=== PATIENT | male | born 1935 | race Caucasian/White ===

== ENCOUNTER 2017-04-28 10:41 | Inpatient (IN) | payer MEDICARE, BC, OTHER ==
[2017-04-28] MEDS ORDERED: HEPARIN 25,000UTS/500ML PREMIX 500 ML IV (10:46)
[2017-04-28 10:54] LABS: ADD MAN DIFF? NO
[2017-04-28] MEDS: HEPARIN for IV BOLUS 10,000 UNIT/10 ML VIAL. IV (10:55)
[2017-04-28 10:57] LABS: BASO # 0.1 x10^3/uL (0.0-0.2); BASO % 1 % (0-3); EOS # 0.3 x10^3/uL (0.0-0.7); EOS % 6 % (0-3); HEMATOCRIT 35.7 % (39.0-53.0); HEMOGLOBIN 12.1 g/dL (13.0-17.5); LYMPH # 2.2 x10^3/uL (1.0-4.8); LYMPH % 38 % (24-48); MEAN CORPUSCULAR HEMOGLOBIN 32 pg (25-35); MEAN CORPUSCULAR HGB CONC 34 g/dL (31-37); MEAN CORPUSCULAR VOLUME 93 fL (79-100); MONO # 0.5 x10^3/uL (0.0-1.1); MONO % 8 % (0-9); NEUT # 2.7 x10^3uL (1.8-7.7); NEUT % 47 % (31-73); PLATELET COUNT 199 x10^3/uL (140-400); RED BLOOD COUNT 3.83 x10^6/uL (4.30-5.70); RED CELL DISTRIBUTION WIDTH 13.5 % (11.5-14.5); WHITE BLOOD COUNT 5.7 x10^3/uL (4.0-11.0)
[2017-04-28] MEDS ORDERED: ONDANSETRON PF 4 MG/2 ML VIAL. IV (11:00)
[2017-04-28] MEDS ORDERED: MIDAZOLAM HCL/PF 2 MG/2 ML VIAL. (11:04)
[2017-04-28] MEDS ORDERED: fentaNYL PF VIAL 100 MCG/2 ML VIAL (11:04)
[2017-04-28 11:06] LABS: INR 1.1 (0.8-1.1); PROTHROMBIN TIME PATIENT 13.1 SEC (11.7-14.0)
[2017-04-28 11:09] LABS: AGAP ISTAT 18 mmol/L (6-14); BUN ISTAT 22 mg/dL (8-26); CHLORIDE ISTAT 101 mmol/L (98-110); CREATININE ISTAT 1.3 mg/dL (0.5-1.4); GLUCOSE ISTAT 209 mg/dL (70-99); HEMATOCRIT ISTAT 34 % (37-52); HEMOGLOBIN ISTAT 11.6 g/dL (14-18); ION CA ISTAT 1.23 mmol/L (1.13-1.32); POTASSIUM ISTAT 4.1 mmol/L (3.5-5.0); SODIUM ISTAT 141 mmol/L (135-145); TOT CO2 ISTAT 28 mmol/L (23-32)
[2017-04-28 11:10] LABS: TROPONIN BY ISTAT 0.03 ng/ml (<0.08)
[2017-04-28] MEDS ORDERED: TIROFIBAN 5MG -0.9% NS 0 ML IV (11:11)
[2017-04-28] MEDS ORDERED: IOHEXOL 300 MG/ML 100ML VIAL. (11:11)
[2017-04-28] MEDS ORDERED: HEPARIN for IV BOLUS 10,000 UNIT/10 ML VIAL. (11:11)
[2017-04-28 11:13] LABS: ANION GAP 7 (6-14); BLOOD UREA NITROGEN 22 mg/dL (8-26); CARBON DIOXIDE 30 mmol/L (21-32); CHLORIDE 104 mmol/L (98-107); CREATININE 1.4 mg/dL (0.7-1.3); GFR 48.5; GLUCOSE 213 mg/dL (70-99); SODIUM 141 mmol/L (136-145)
[2017-04-28 11:19] LABS: ALK PHOS 67 U/L (46-116); ALT (SGPT) 20 U/L (16-63); AST (SGOT) 23 U/L (15-37); DIRECT BILIRUBIN 0.1 mg/dL (0.0-0.2); LIPASE 122 U/L (73-393); MAGNESIUM 1.8 mg/dL (1.8-2.4); TOTAL BILIRUBIN 0.7 mg/dL (0.2-1.0); TOTAL PROTEIN 7.3 g/dL (6.4-8.2)
[2017-04-28 11:21] LABS: TROPONINI 0.029 ng/mL (0.000-0.055)
[2017-04-28] MEDS ORDERED: BIVALIRUDIN 250 MG VIAL. IV (11:23)
[2017-04-28 11:26] LABS: NT-PRO BNP 476 pg/mL (0-449)
[2017-04-28 11:26] LABS: CKMB MASS 1.9 ng/mL (0.0-3.6); CREATINE KINASE 94 U/L (39-308)
[2017-04-28] MEDS: LIDOCAINE 2% 20 ML VIAL. IJ (11:45)
[2017-04-28] MEDS: MIDAZOLAM HCL/PF 2 MG/2 ML VIAL. IV (11:45)
[2017-04-28] MEDS: NITROGLYCERIN 200 MCG/2 ML SYRINGE FOR CATH/VASC LAB. IART (11:45)
[2017-04-28] MEDS: fentaNYL PF VIAL 100 MCG/2 ML VIAL IV (11:45)
[2017-04-28] MEDS: IOHEXOL 300 MG/ML 100ML VIAL. IART (11:45)
[2017-04-28] MEDS: BIVALIRUDIN 250 MG VIAL. IV (11:45)
[2017-04-28] MEDS ORDERED: TICAGRELOR 90 MG TABLET. (11:55)
[2017-04-28] MEDS ORDERED: ASPIRIN 325 MG TABLET (11:55)
[2017-04-28] MEDS ORDERED: NITROGLYCERIN PREMIX 250 ML IV (12:12)
[2017-04-28] MEDS: IV NORMAL SALINE 1000ML BAG 1,000 ML IV (12:16)
[2017-04-28] MEDS: TICAGRELOR 90 MG TABLET. PO ×2 (12:27→21:09)
[2017-04-28] MEDS: ASPIRIN 325 MG TABLET PO (12:27)
[2017-04-28] MEDS ORDERED: ACETAMINOPHEN 325 MG TABLET. PO (12:30)
[2017-04-28] MEDS ORDERED: LIDOCAINE 2% 100 MG/5 ML SYRINGE. IV (12:30)
[2017-04-28] MEDS ORDERED: fentaNYL PF VIAL 100 MCG/2 ML VIAL IV (12:30)
[2017-04-28] MEDS ORDERED: 0.9 % SODIUM CHLORIDE 10 ML DISP.SYRIN. IV (12:30)
[2017-04-28] MEDS ORDERED: NITROGLYCERIN SUBLINGUAL 0.4 MG BOTTLE OF 25. SL (12:30)
[2017-04-28] MEDS ORDERED: AMIODARONE 150 MG in IV DEXTROSE 5% 100 ML IV (12:30)
[2017-04-28] MEDS ORDERED: ATROPINE 0.5 MG/5 ML DISP.SYRIN. IV (12:30)
[2017-04-28] MEDS: LISINOPRIL 5 MG TABLET. PO ×2 (13:00→14:40)
[2017-04-28] MEDS: METOPROLOL TART IMMED RELEASE 25 MG TABLET. PO ×3 (13:00→21:00)
[2017-04-28] MEDS ORDERED: PNEUMOCOCCAL VAX SCREEN BY RX. MC (15:45)
[2017-04-28] MEDS ORDERED: INFLUENZA VAX SCREEN BY RX. MC (15:45)
[2017-04-28] MEDS ORDERED: hydrALAZINE 20 MG/ML VIAL. IVP (16:45)
[2017-04-28 17:12] LABS: THYROID STIM HORMONE (TSH) 5.918 uIU/mL (0.358-3.74)
[2017-04-28 17:26] LABS: TROPONINI 67.051 ng/mL (0.000-0.055)
[2017-04-28] MEDS: ATORVASTATIN CALCIUM 20 MG TABLET PO (21:00)
[2017-04-28 23:33] LABS: TROPONINI 51.267 ng/mL (0.000-0.055)
[2017-04-29 00:11] LABS: MRSA BY PCR Negative (Negative)
[2017-04-29 05:18] LABS: ADD MAN DIFF? NO
[2017-04-29 05:45] LABS: BASO % 1 % (0-3); EOS # 0.2 x10^3/uL (0.0-0.7); EOS % 2 % (0-3); HEMATOCRIT 34.2 % (39.0-53.0); HEMOGLOBIN 11.6 g/dL (13.0-17.5); LYMPH # 1.5 x10^3/uL (1.0-4.8); LYMPH % 17 % (24-48); MEAN CORPUSCULAR HEMOGLOBIN 31 pg (25-35); MEAN CORPUSCULAR HGB CONC 34 g/dL (31-37); MEAN CORPUSCULAR VOLUME 93 fL (79-100); MONO # 0.8 x10^3/uL (0.0-1.1); MONO % 9 % (0-9); NEUT # 6.3 x10^3uL (1.8-7.7); NEUT % 72 % (31-73); PLATELET COUNT 171 x10^3/uL (140-400); RED BLOOD COUNT 3.68 x10^6/uL (4.30-5.70); RED CELL DISTRIBUTION WIDTH 13.3 % (11.5-14.5); WHITE BLOOD COUNT 8.7 x10^3/uL (4.0-11.0)
[2017-04-29 06:08] LABS: TROPONINI 38.759 ng/mL (0.000-0.055)
[2017-04-29 06:10] LABS: CHOLESTEROL 191 mg/dL (0-200); HDLC 56 mg/dL (40-60); LDLC 124 mg/dL (0-100); NON-HDL CHOLESTEROL 135 mg/dL (0-129); TRIGLYCERIDES 56 mg/dL (0-150); VLDLC 11 mg/dL (0-40)
[2017-04-29 06:12] LABS: CHOLESTEROL/HDL RATIO 3.4
[2017-04-29 07:31] LABS: ANION GAP 8 (6-14); BLOOD UREA NITROGEN 23 mg/dL (8-26); CALCIUM 9.3 mg/dL (8.5-10.1); CARBON DIOXIDE 27 mmol/L (21-32); CHLORIDE 103 mmol/L (98-107); CREATININE 1.2 mg/dL (0.7-1.3); GLUCOSE 101 mg/dL (70-99); SODIUM 138 mmol/L (136-145)
[2017-04-29] MEDS ORDERED: ASPIRIN ENTERIC COATED 81 MG TABLET.DR. PO (08:00)
[2017-04-29] MEDS: ASPIRIN ENTERIC COATED 81 MG TABLET.DR. PO (08:59)
[2017-04-29] MEDS: TICAGRELOR 90 MG TABLET. PO ×3 (08:59→22:35)
[2017-04-29] MEDS: LISINOPRIL 5 MG TABLET. PO (09:00)
[2017-04-29] MEDS ORDERED: FLU VACC QS2017-18 (36MOS+)/PF 0.5 ML SYRINGE. VAX IM (09:00)
[2017-04-29] MEDS: METOPROLOL TART IMMED RELEASE 25 MG TABLET. PO ×2 (09:00→20:32)
[2017-04-29] MEDS ORDERED: PNEUMOC CONJ VACC 23-VALENT 0.5 ML VIAL. VAX IM (09:00)
[2017-04-29] MEDS ORDERED: ONDANSETRON PF 4 MG/2 ML VIAL. IV (11:00)
[2017-04-29] MEDS ORDERED: AMIODARONE 150 MG in IV DEXTROSE 5% 100 ML IV (12:30)
[2017-04-29] MEDS ORDERED: ACETAMINOPHEN 325 MG TABLET. PO (12:30)
[2017-04-29] MEDS ORDERED: NITROGLYCERIN SUBLINGUAL 0.4 MG BOTTLE OF 25. SL (12:30)
[2017-04-29 15:19] LABS: HEMOGLOBIN A1C 5.6 % (4.8-5.6)
[2017-04-29] MEDS: ATORVASTATIN CALCIUM 20 MG TABLET PO ×2 (20:32→22:34)
[2017-04-29] MEDS: hydrALAZINE 20 MG/ML VIAL. IVP (23:09)
[2017-04-30] MEDS: TICAGRELOR 90 MG TABLET. PO (07:33)
[2017-04-30] MEDS: METOPROLOL TART IMMED RELEASE 25 MG TABLET. PO (07:33)
[2017-04-30] MEDS: ASPIRIN ENTERIC COATED 81 MG TABLET.DR. PO (07:33)
[2017-04-30] MEDS: LISINOPRIL 5 MG TABLET. PO (07:33)
== END 2017-04-30 10:35 | disposition home or self-care (01) | DRG 246 ==
LOC: ER 10:41 → 1 WEST ICU 10:45
PROC: 027034Z Dilation of Coronary Artery, One Artery with Drug-eluting Intraluminal Device, Percutaneous Approach (ICD-10-PCS; principal; 2017-04-28)
PROC: 4A023N7 Measurement of Cardiac Sampling and Pressure, Left Heart, Percutaneous Approach (ICD-10-PCS; 2017-04-28)
PROC: B2111ZZ Fluoroscopy of Multiple Coronary Arteries using Low Osmolar Contrast (ICD-10-PCS; 2017-04-28)
DX: I21.19 ST elevation (STEMI) myocardial infarction involving other coronary artery of inferior wall (principal); G93.41 Metabolic encephalopathy; N17.0 Acute kidney failure with tubular necrosis; I16.1 Hypertensive emergency; E11.9 Type 2 diabetes mellitus without complications; E78.5 Hyperlipidemia, unspecified; I10 Essential (primary) hypertension; M19.90 Unspecified osteoarthritis, unspecified site; Z82.49 Family history of ischemic heart disease and other diseases of the circulatory system; Z87.891 Personal history of nicotine dependence
CPT/HCPCS: 36415; 71045; 80047; 80048; 80061; 80076; 82553; 83036; 83690; 83735; 83880; 84443; 84484; 85025; 85610; 87641; 92941; 93005; 93306; 93454; 99291; 99291-25; C1713; C1725; C1769; C1771; C1887; C1892; G0269; J0360; J0583; J1644; J7030; Q9967

== ENCOUNTER 2017-10-30 10:55 | Inpatient (IN) | payer MEDICARE, BC ==
[2017-10-30] MEDS: ASPIRIN CHEWABLE 81 MG TABLET. PO (11:30)
[2017-10-30 11:39] LABS: BASO % 0 % (0-3); EOS % 0 % (0-3); HEMATOCRIT 34.2 % (39.0-53.0); HEMOGLOBIN 11.6 g/dL (13.0-17.5); LYMPH # 0.7 x10^3/uL (1.0-4.8); LYMPH % 9 % (24-48); MEAN CORPUSCULAR HEMOGLOBIN 32 pg (25-35); MEAN CORPUSCULAR HGB CONC 34 g/dL (31-37); MEAN CORPUSCULAR VOLUME 94 fL (79-100); MONO # 0.3 x10^3/uL (0.0-1.1); MONO % 4 % (0-9); NEUT # 6.3 x10^3uL (1.8-7.7); NEUT % 86 % (31-73); PLATELET COUNT 156 x10^3/uL (140-400); RED BLOOD COUNT 3.66 x10^6/uL (4.30-5.70); RED CELL DISTRIBUTION WIDTH 13.7 % (11.5-14.5); WHITE BLOOD COUNT 7.3 x10^3/uL (4.0-11.0)
[2017-10-30 11:44] LABS: ADD MAN DIFF? YES
[2017-10-30 11:48] LABS: ANION GAP 7 (6-14); BLOOD UREA NITROGEN 33 mg/dL (8-26); CALCIUM 9.6 mg/dL (8.5-10.1); CARBON DIOXIDE 30 mmol/L (21-32); CHLORIDE 104 mmol/L (98-107); CREATININE 1.3 mg/dL (0.7-1.3); GFR 52.7; GLUCOSE 169 mg/dL (70-99); POTASSIUM 4.2 mmol/L (3.5-5.1); SODIUM 141 mmol/L (136-145)
[2017-10-30 11:55] LABS: PARTIAL THROMBOPLASTIN TIME 24 SEC (24-38)
[2017-10-30] MEDS: IOHEXOL 300 MG/ML 100ML VIAL. IV (12:00)
[2017-10-30 12:03] LABS: TROPONINI < 0.017 ng/mL (0.000-0.055)
[2017-10-30] MEDS ORDERED: CONTRAST GIVEN. MC (12:15)
[2017-10-30] MEDS: ASPIRIN 300 MG SUPP.RECT PR (12:29)
[2017-10-30 12:38] LABS: % BANDS 9 % (0-9); % BASOS 1 % (0-3); % LYMPHS 9 % (24-48); % MONOS 2 % (0-10); % SEGS 79 % (35-66); PLT ESTIMATE ADEQUATE (ADEQUATE)
[2017-10-30] MEDS ORDERED: ACETAMINOPHEN 650 MG SUPP.RECT. PR (15:00)
[2017-10-30] MEDS ORDERED: LABETALOL 20 MG/4 ML DISP.SYRIN. IVP (15:00)
[2017-10-30] MEDS ORDERED: ACETAMINOPHEN 325 MG TABLET. PO (15:00)
[2017-10-30] MEDS ORDERED: MORPHINE SULFATE 2 MG/ML DISP.SYRIN. IV (15:00)
[2017-10-30] MEDS ORDERED: ONDANSETRON PF 4 MG/2 ML VIAL. IV (15:00)
[2017-10-30] MEDS: LISINOPRIL 5 MG TABLET. PO (15:30)
[2017-10-30] MEDS ORDERED: IV NORMAL SALINE 1000ML BAG 1,000 ML IV (15:30)
[2017-10-30 18:26] LABS: TROPONINI < 0.017 ng/mL (0.000-0.055)
[2017-10-30] MEDS: IV NORMAL SALINE 1000ML BAG 1,000 ML IV (18:39)
[2017-10-30] MEDS: ENOXAPARIN 40 MG/0.4 ML SYRINGE. SQ (18:39)
[2017-10-30] MEDS: ATORVASTATIN CALCIUM 20 MG TABLET PO (19:25)
[2017-10-30] MEDS: METOPROLOL TART IMMED RELEASE 25 MG TABLET. PO (19:25)
[2017-10-30] MEDS: TICAGRELOR 90 MG TABLET. PO (19:25)
[2017-10-30 21:00] LABS: TROPONINI < 0.017 ng/mL (0.000-0.055)
[2017-10-31] MEDS: IV NORMAL SALINE 1000ML BAG 1,000 ML IV ×4 (01:00→21:14)
[2017-10-31 04:33] LABS: ADD MAN DIFF? NO
[2017-10-31 04:39] LABS: BASO % 1 % (0-3); EOS # 0.1 x10^3/uL (0.0-0.7); EOS % 1 % (0-3); HEMATOCRIT 31.8 % (39.0-53.0); HEMOGLOBIN 10.9 g/dL (13.0-17.5); LYMPH # 1.5 x10^3/uL (1.0-4.8); LYMPH % 24 % (24-48); MEAN CORPUSCULAR HEMOGLOBIN 32 pg (25-35); MEAN CORPUSCULAR HGB CONC 34 g/dL (31-37); MEAN CORPUSCULAR VOLUME 94 fL (79-100); MONO # 0.5 x10^3/uL (0.0-1.1); MONO % 8 % (0-9); NEUT # 4.1 x10^3uL (1.8-7.7); NEUT % 66 % (31-73); PLATELET COUNT 144 x10^3/uL (140-400); RED CELL DISTRIBUTION WIDTH 13.6 % (11.5-14.5); WHITE BLOOD COUNT 6.3 x10^3/uL (4.0-11.0)
[2017-10-31 04:59] LABS: ANION GAP 7 (6-14); BLOOD UREA NITROGEN 26 mg/dL (8-26); CALCIUM 8.9 mg/dL (8.5-10.1); CARBON DIOXIDE 28 mmol/L (21-32); CHLORIDE 107 mmol/L (98-107); CHOLESTEROL 188 mg/dL (0-200); CREATININE 1.1 mg/dL (0.7-1.3); GFR 63.9; GLUCOSE 91 mg/dL (70-99); HDLC 56 mg/dL (40-60); LDLC 119 mg/dL (0-100); NON-HDL CHOLESTEROL 132 mg/dL (0-129); SODIUM 142 mmol/L (136-145); TRIGLYCERIDES 65 mg/dL (0-150); VLDLC 13 mg/dL (0-40)
[2017-10-31 05:02] LABS: CHOLESTEROL/HDL RATIO 3.4
[2017-10-31] MEDS: ASPIRIN ENTERIC COATED 81 MG TABLET.DR. PO (14:25)
[2017-10-31] MEDS: METOPROLOL TART IMMED RELEASE 25 MG TABLET. PO ×2 (14:27→21:11)
[2017-10-31] MEDS: LISINOPRIL 5 MG TABLET. PO (14:27)
[2017-10-31] MEDS: TICAGRELOR 90 MG TABLET. PO ×2 (14:28→21:10)
[2017-10-31] MEDS: ENOXAPARIN 30 MG/0.3 ML SYRINGE. SQ (17:06)
[2017-10-31] MEDS: ATORVASTATIN CALCIUM 20 MG TABLET PO (21:10)
[2017-11-01] MEDS: METOPROLOL TART IMMED RELEASE 25 MG TABLET. PO ×2 (00:51→09:00)
[2017-11-01] MEDS: ASPIRIN ENTERIC COATED 81 MG TABLET.DR. PO (09:52)
[2017-11-01] MEDS: LISINOPRIL 5 MG TABLET. PO (09:53)
[2017-11-01] MEDS: TICAGRELOR 90 MG TABLET. PO (09:53)
[2017-11-01] MEDS ORDERED: LISINOPRIL 10 MG TABLET PO (13:15)
[2017-11-01] MEDS ORDERED: ENOXAPARIN 40 MG/0.4 ML SYRINGE. SQ (16:00)
[2017-11-01] MEDS ORDERED: ATORVASTATIN CALCIUM 20 MG TABLET PO (21:00)
[2017-11-02] MEDS ORDERED: LISINOPRIL 5 MG TABLET. PO (09:00)
== END 2017-11-01 13:31 | DRG 64 ==
LOC: ER 10:55 → 6 SOUTH 13:20
DX: I63.9 Cerebral infarction, unspecified (principal); G93.49 Other encephalopathy; I65.23 Occlusion and stenosis of bilateral carotid arteries; I25.10 Atherosclerotic heart disease of native coronary artery without angina pectoris; I10 Essential (primary) hypertension; Z95.5 Presence of coronary angioplasty implant and graft; Z82.49 Family history of ischemic heart disease and other diseases of the circulatory system; Z82.3 Family history of stroke; F03.90 Unspecified dementia, unspecified severity, without behavioral disturbance, psychotic disturbance, mood disturbance, and anxiety; M19.90 Unspecified osteoarthritis, unspecified site; E78.5 Hyperlipidemia, unspecified; E11.42 Type 2 diabetes mellitus with diabetic polyneuropathy
CPT/HCPCS: 36415; 70450; 70496; 70498; 70551; 80048; 80061; 84484; 85007; 85025; 85610; 85730; 92610-GN; 93005; 93306; 93880; 97110-GP; 97116-GP; 97162-GP; 97166-GO; 97530-GO; 97535-GO; 99285; 99285-25; G8978-CL-GP; G8979-CK-GP; J1650; J7030; Q9967

== ENCOUNTER 2018-03-27 17:58 | Emergency (ER) | payer MEDICARE, BC ==
[~2018-03-27] VITALS: Ht 182.9 cm; Wt 72.6 kg
[~2018-03-27 17:58] MED LIST: ASPI-612 PO; ATOR20TA58 PO; LISI-338 PO; METO25TA4 PO; TICA90TA PO
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
[2018-03-27 19:02] VITALS: BP 170/75
--- NOTE | 2018-03-27 20:28 | RAD ---
PORTABLE CHEST 1V Clinical History: AMS Technique: AP view of the chest was obtained at 03/27/2018 6:26 PM. Comparison: April 28, 2017. Findings: The cardiomediastinal silhouette is normal. The pulmonary vasculature is normal. The lungs and pleural margins are clear. Impression: No evidence of an acute cardiopulmonary process. Electronically signed by: Harsh Weiner III, MD (03/27/2018 8:24 PM) [id number]
--- NOTE | 2018-03-28 07:16 | EKG ---
[facility] [address] [place] [address] Test Date: 2018-03-27 Test Time: 18:40:59 Pat Name: ESTRELLITA GOMEZ Department: Room: Gender: M Time Study Observer: : 1935 Requested By: JAK MURCIA Order Number: [id number] Reading MD: Manjinder Ingram Measurements Intervals [place] Rate: 46 P: 60 [place]: 186 QRS: 39 QRSD: 82 T: 59 QT: 496 QTc: 435 Interpretive Statements SINUS BRADYCARDIA Electronically Signed On 03-30-2018 17:21:21 TOWER EXCAVATOR OPERATOR by Manjinder Ingram
== END 2018-03-27 19:15 | disposition left against medical advice (07) ==
LOC: ER 17:58
DX: R41.0 Disorientation, unspecified (principal); I10 Essential (primary) hypertension; I25.2 Old myocardial infarction; I25.10 Atherosclerotic heart disease of native coronary artery without angina pectoris; Z86.73 Personal history of transient ischemic attack (TIA), and cerebral infarction without residual deficits; Z95.1 Presence of aortocoronary bypass graft; Z95.5 Presence of coronary angioplasty implant and graft
CPT/HCPCS: 71045; 93005; 99284-25

== ENCOUNTER 2018-07-09 10:13 | Inpatient (IN) | payer MEDICARE, BC ==
[~2018-07-09] VITALS: Ht 179.1 cm; Wt 56.0 kg
[2018-07-09] MEDS ORDERED: cloNIDine HCL 0.1 MG TABLET PO ONE (10:45)
--- NOTE | 2018-07-09 11:02 | PDOC1 ---
History and Physical Date of Admission Date of Admission DATE: 07/09/18 TIME: 11:01 Identification/Chief Complaint Chief Complaint Confused Source Source: Caregiver, Chart review History of Present Illness History of Present Illness 82 yo M w/ PMHx CVA 2018, h/o TBI with impaired cognition who brought in by EMS because of confusion and wandering outside. Patient denies any problem and he states his caregiver, Selwyn, made him to come here but his caregiver stated that he refused to take his medication, filling out the paper work for correction placement and taking care of himself. Patient's caregivers states that he is out of home about 10 hours while he is at work and doesn't feel comfortable that he states by himself. Patient is alert and oriented to person and place and states he lives with his cousin named Selwyn who is his godson and medical power of multi operation machine operator/guardian. In ED he had a CT head: 1. No acute intracranial bleed. 2. Chronic right hermelinda and left basal ganglia infarcts. On my interview he is insistent that he has an IQ of 78, is oriented to person, place, month, day, but thinks the year is 2013. His guardian/POA Selwyn is bedside, states that Mr Milligan sundowns and they are looking into intermediate school teacher placement with his mother who is a nurse locally. Mr. Milligan has no complaints and shows he can walk with his cane for me during interview. 03/27/18 was found walking home in the cold and was seen in ED, left AMA at that time. Same occurred on 04/17/18. SBP was > 220mmHg Past Medical History Cardiovascular: CAD, HTN, [place], Hyperlipidemia Pulmonary: No pertinent hx CENTRAL NERVOUS SYSTEM: Periperal neuropathy GI: No pertinent hx Musculoskeletal: Osteoarthritis, Other Endocrine: Diabetes Past Surgical History Past Surgical History: Other Family History Family History: Coronary Artery Disease, Stroke Social History ALCOHOL: none Drugs: None Current Medications Current Medications Current Medications Clonidine HCl (Catapres) 0.1 mg 1X ONCE PO ; Start 07/09/18 at 10:45; Stop at 10:50; Status DC Active Scripts Active Metoprolol Tartrate 25 Mg Tablet 12.5 Mg PO BID 30 Days Lisinopril 5 Mg Tablet 5 Mg PO DAILY 30 Days Atorvastatin Calcium 20 Mg Tablet 20 Mg PO QHS 30 Days Aspirin Ec (Aspirin) 81 Mg Tablet. 81 Mg PO DAILYWBKFT 30 Days Allergies Allergies: Coded Allergies: No Known Drug Allergies (Unverified , 04/28/17) ROS General: No: Chills, Night Sweats, Fatigue, Malaise, Appetite, Other PSYCHOLOGICAL ROS: YES: Disorientation; No: Anxiety, Behavioral Disorder, Concentration difficultie, Decreased libido , Depression, Hallucinations, Hostility, Irritablity, Memory difficulties, Mood Swings, Obsessive thoughts, Physical abuse, Sexual abuse, Sleep disturbances, Suicidal ideation, Other Eyes: No Blurry vision, No Decreased vision, No Double vision, No Dry eyes, No Excessive tearing, No Eye Pain, No Itchy Eyes, No Loss of vision, No Photophobia , No Scotomata, No Uses contacts, No Uses glasses, No Other HEENT: No: Heacaches, Visual Changes, Hearing change, Nasal congestion, Nasal discharge, Oral lesions, Sinus pain, Sore Throat, Epistaxis, Sneezing, Snoring, Tinnitus, Vertigo, Vocal changes, Other ALLERGY AND IMMUNOLOGY: No: Hives, Insect Bite Sensitivity, Itchy/Watery Eyes, Nasal Congestion, Post Nasal Drip, Seasonal Allergies, Other Hematological and Lymphatic: No: Bleeding Problems, Blood Clots, Blood Transfusions, Brusing, Night Sweats, Pallor, Swollen Lymph Nodes, Other ENDOCRINE: No: Breast Changes, Galactorrhea, Hair Pattern Changes, Hot Flashes , Malaise/lethargy, Mood Swings, Palpitations, Polydipsia/polyuria, Skin Changes , Temperature Intolerance, Unexpected Weight Changes, Other Breast: No New/Changing Breast Lumps, No Nipple changes, No Nipple discharge, No Other Respiratory: No: Cough, Hemoptysis, Orthopnea, Pleuritic Pain, Shortness of breath, SOB with excertion, Sputum Changes, Stridor, Tachypnea, Wheezing, Other Cardiovascular: No Chest Pain, No Palpitations, No Orthopnea, No Paroxysmal Noc. Dyspnea, No Edema, No Lt Headedness, No Other Gastrointestinal: No Nausea, No Vomiting, No Abdominal Pain, No Diarrhea, No Constipation, No Melena, No Hematochezia, No Other Genitourinary: No Dysuria, No Frequency, No Incontinence, No Hematuria, No Retention, No Discharge, No Urgency, No Pain, No Flank Pain, No Other, No , No , No , No , No , No , No Musculoskeletal: No Gait Disturbance, No Joint Pain, No Joint Stiffness, No Joint Swelling, No Muscle Pain, No Muscular Weakness, No Pain In:, No Swelling In:, No Other Neurological: No Behavorial Changes, No Bowel/Bladder ControlChng, No Confusion , No Dizziness, No Gait Disturbance, No Headaches, No Impaired Coord/balance, No Memory Loss, No Numbness/Tingling, No Seizures, No Speech Problems, No Tremors, No Visual Changes, No Weakness, No Other Skin: No Dry Skin, No Eczema, No Hair Changes, No Lumps, No Mole Changes, No Mottling, No Nail Changes, No Pruritus, No Rash, No Skin Lesion Changes, No Other, No Acne Physical Exam General: Alert, Cooperative, No acute distress HEENT: Atraumatic, PERRLA, EOMI, Mucous membr. moist/pink Lungs: Other (Scattered wheezes bilaterally) Heart: S1S2, RRR Abdomen: Normal bowel sounds, Soft, No tenderness, No hepatosplenomegaly, No masses Rectal Exam: not examined Extremities: No clubbing, No cyanosis, No edema, Normal pulses, No tenderness/ swelling Skin: No rashes, No breakdown, No significant lesion Neuro: Normal gait, Normal speech, Strength at 5/5 X4 ext, Normal tone, Sensation intact, Cranial nerves 3-12 NL, Reflexes 2+ Psych/Mental Status: Mood NL Vitals Vitals Vital Signs Date Time Temp Pulse Resp B/P (MAP) Pulse Ox O2 Delivery O2 Flow Rate FiO2 07/09/18 10:34 97.6 46 16 226/72 (123) 99 Room Air 97.6 Images Images CXR - 1. No acute pulmonary finding. 2. Emphysema. CT Head - 1. No acute intracranial abnormality is identified. There is again mild generalized supratentorial atrophy. There is some ill-defined low-density right hermelinda although unchanged if a real finding, could be due to sequela of previous ischemia. VTE Prophylaxis Ordered VTE Prophylaxis Devices: Yes VTE Pharmacological Prophylaxi: Yes Assessment/Plan Assessment/Plan A/P: Acute encephalopathy - Hypertensive encephalopathy, metabolic is likely as well. it appears he is chronically cognitively impaired with a guardian. Will have him seen by neurology as he has been seen in the past Falls - patient has fallen in the past, states he has not fallen in months Wheezing - emphysema on CXR - will give nebs Anemia - will monitor, check iron levels H/O CVA - on statin and ASA, continue Dementia? - likely vascular, he will need skilled placement in the future, will d/w DWIGHT FEN - General PPX - SCDs DNR/DNI Inpatient for confusion and falls for at least 2 midnights WILDA ASHRAF MD Jul 09, 2018 11:02
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
[2018-07-09 11:25] LABS: BASO % 1 % (0-3); EOS # 0.2 x10^3/uL (0.0-0.7); EOS % 5 % (0-3); HEMATOCRIT 33.4 % (39.0-53.0); HEMOGLOBIN 11.2 g/dL (13.0-17.5); LYMPH # 1.1 x10^3/uL (1.0-4.8); LYMPH % 24 % (24-48); MEAN CORPUSCULAR HEMOGLOBIN 31 pg (25-35); MEAN CORPUSCULAR HGB CONC 34 g/dL (31-37); MEAN CORPUSCULAR VOLUME 93 fL (79-100); MONO # 0.4 x10^3/uL (0.0-1.1); MONO % 9 % (0-9); NEUT # 2.7 x10^3uL (1.8-7.7); NEUT % 61 % (31-73); PLATELET COUNT 197 x10^3/uL (140-400); RED BLOOD COUNT 3.58 x10^6/uL (4.30-5.70); RED CELL DISTRIBUTION WIDTH 13.5 % (11.5-14.5); WHITE BLOOD COUNT 4.4 x10^3/uL (4.0-11.0)
--- NOTE | 2018-07-09 11:33 | RAD ---
EXAM: Chest, 2 views. HISTORY: Confusion. COMPARISON: None. FINDINGS: 2 views of the chest are obtained. There is no infiltrate, pleural effusion or pneumothorax. The heart is normal in size. There is hyperinflation likely due to emphysema. There are few calcified granulomas. There are few minimal thoracic superior endplate depressions. IMPRESSION: 1. No acute pulmonary finding. 2. Emphysema. Electronically signed by: Lissett Styles MD (07/09/2018 11:30 AM) [place] [id number]
[2018-07-09 11:36] LABS: CALCIUM 9.3 mg/dL (8.5-10.1); CREATININE 1.2 mg/dL (0.7-1.3); GFR 57.8; POTASSIUM 4.4 mmol/L (3.5-5.1)
[2018-07-09 11:41] LABS: ALBUMIN 3.9 g/dL (3.4-5.0); ALBUMIN/GLOBULIN RATIO 1.2 (1.0-1.7); TOTAL BILIRUBIN 0.6 mg/dL (0.2-1.0); TOTAL PROTEIN 7.1 g/dL (6.4-8.2)
--- NOTE | 2018-07-09 12:00 | RAD ---
CT HEAD WO CONTRAST History: Confusion Comparison: April 17, 2018 Technique: Noncontrast CT imaging was performed of the head. Exposure: One or more of the following individualized dose reduction techniques were utilized for this examination: 1. Automated exposure control 2. Adjustment of the mA and/or kV according to patient size 3. Use of iterative reconstruction technique. Findings: No acute extra-axial or parenchymal hemorrhage is identified. There is no significant intra-axial mass effect, midline shift, or extra-axial fluid collection. The capellan-white differentiation of the major vascular territories is preserved. Ventricular size is proportionate to sulcal spaces. There is again mild generalized supratentorial atrophy. The mastoid air cells and the visualized paranasal sinuses are aerated. No acute calvarial abnormality is identified. There is atherosclerotic calcification carotid siphons bilaterally. There is some ill-defined low-density of the right hermelinda although unchanged if a real finding, limited evaluation due to artifact in this region. Impression: 1. No acute intracranial abnormality is identified. There is again mild generalized supratentorial atrophy. There is some ill-defined low-density right hermelinda although unchanged if a real finding, could be due to sequela of previous ischemia. Electronically signed by: Abhilash Austin MD (07/09/2018 11:57 AM) [facility]
[2018-07-09 13:00] VITALS: BP 159/54
--- NOTE | 2018-07-09 13:08 | EKG ---
[facility] [address] [place] [address] Test Date: 2018-07-09 Test Time: 11:42:04 Pat Name: ESTRELLITA GOMEZ Department: Room: [facility] Gender: M Film Printer: : 1935 Requested By: LIONEL MONTALVO Order Number: [id number] Reading MD: Manjinder Ingram Measurements Intervals [place] Rate: 44 P: 51 [place]: 190 QRS: 38 QRSD: 78 T: 74 QT: 498 QTc: 429 Interpretive Statements SINUS BRADYCARDIA T ABNORMALITY IN HIGH LATERAL LEADS ABNORMAL ECG Electronically Signed On 07-16-2018 12:58:48 CDT by Manjinder Ingram
[2018-07-09 13:18] LABS: BILIRUBIN,URINE NEGATIVE (NEG); CLARITY,URINE CLEAR; COLOR,URINE YELLOW; NITRITE,URINE NEGATIVE (NEG); PH,URINE 7.5; PROTEIN,URINE NEGATIVE (NEG-TRACE)
[2018-07-09 13:25] LABS: RBC,URINE 0 /HPF (0-2); SQUAMOUS EPITHELIAL CELL,UR FEW /LPF
[2018-07-09 13:26] LABS: BACTERIA,URINE 0 /HPF (0-FEW); WBC,URINE 0 /HPF (0-4)
[2018-07-09 13:33] LABS: BARBITURATES NEG (NEG); BENZODIAZEPINES NEG (NEG); CANNABINOIDS NEG (NEG); COCAINE NEG (NEG); METHADONE NEG (NEG); OPIATES NEG (NEG); PHENCYCLIDINE NEG (NEG)
[2018-07-09 13:35] LABS: AMPHETAMINE/METHAMPHETAMINE NEG (NEG)
[2018-07-09] MEDS ORDERED: ONDANSETRON PF 4 MG/2 ML VIAL. IV PRN (14:30)
[2018-07-09] MEDS ORDERED: MAGNESIUM HYDROXIDE 2,400 MG/30 ML ORAL.SUSP. PO PRN (14:30)
[2018-07-09] MEDS ORDERED: LABETALOL 20 MG/4 ML DISP.SYRIN. IVP PRN (14:45)
[2018-07-09 15:00] VITALS: BP 162/55
--- NOTE | 2018-07-09 15:16 | NUR ---
Received pt as an admit to room 504 from ED. Arrived per cart at 1305. See admit assessments. Pt positioned for comfort no c/o pain reported.
[2018-07-09 15:27] VITALS: BP 137/50
[2018-07-09] MEDS: IPRATRPIUM/ALBUTEROL 0.5/2.5MG 3 ML NEBU. NEB SCH ×2 (15:28→20:25)
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
[2018-07-09 15:46] VITALS: BP 137/50
[2018-07-09 19:00] VITALS: BP 125/59
[2018-07-09] MEDS: ATORVASTATIN CALCIUM 20 MG TABLET PO SCH (21:10)
[2018-07-09] MEDS: risperiDONE 1 MG TABLET. PO SCH (21:10)
[2018-07-09] MEDS: SENNOSIDES/DOCUSATE 8.6/50MG TABLET. PO SCH (21:10)
[2018-07-09] MEDS: METOPROLOL TART IMMED RELEASE 25 MG TABLET. PO SCH (21:12)
[2018-07-09] MEDS: HEPARIN for SUB-Q USE 5,000 UNIT/ML VIAL. SQ SCH (21:14)
[2018-07-09 23:00] VITALS: BP 129/79
[2018-07-10 02:58] VITALS: BP 118/57
[2018-07-10] MEDS: HEPARIN for SUB-Q USE 5,000 UNIT/ML VIAL. SQ SCH ×3 (06:09→22:00)
[2018-07-10 07:00] VITALS: BP 138/54
[2018-07-10] MEDS: IPRATRPIUM/ALBUTEROL 0.5/2.5MG 3 ML NEBU. NEB SCH ×4 (08:18→20:08)
[2018-07-10] MEDS: ASPIRIN ENTERIC COATED 81 MG TABLET.DR. PO SCH (08:31)
[2018-07-10] MEDS: METOPROLOL TART IMMED RELEASE 25 MG TABLET. PO SCH ×2 (08:31→20:49)
[2018-07-10] MEDS: SENNOSIDES/DOCUSATE 8.6/50MG TABLET. PO SCH ×2 (08:33→20:49)
[2018-07-10] MEDS: LISINOPRIL 5 MG TABLET. PO SCH (08:33)
--- NOTE | 2018-07-10 09:28 | PDOC ---
PROGRESS NOTES Assessment Problems Medical Problems: (1) Anemia Status: Acute (2) CHF (congestive heart failure) Status: Acute (3) Hypertensive urgency Status: Acute (4) Sinus bradycardia Status: Acute . 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 Failure to thrive at home, including falls and wandering Plan No additional neurological studies needed. custodial transfer. Rehab modalities Subjective none Objective Vital Signs Date Time Temp Pulse Resp B/P (MAP) Pulse Ox O2 Delivery O2 Flow Rate FiO2 07/10/18 08:33 55 138/54 07/10/18 08:19 Room Air 07/10/18 07:00 97.7 16 99 97.7 Intake and Output 07/10/18 07:00 Intake Total 180 ml Output Total 225 ml Balance -45 ml Intake Oral 180 ml Output Urine Total 225 ml # Voids 6 PHYSICAL EXAM Alert. Oriented to person. Thinks he is in the old A building, does not know date PERRL. EOMI. CN: no focal findings. Muscle tone: normal. Muscle strength: 4/5 DTR: 2+ Plantar reflex: flexor Gait: not examined in bed. Sensory exam: no abnormal findings. No cerebellar signs elicited. Review of Relevant I have reviewed the following items jorge (where applicable) has been applied. Labs Laboratory Tests Test 07/09/18 11:10 07/09/18 13:05 White Blood Count 4.4 x10^3/uL (4.0-11.0) Red Blood Count 3.58 x10^6/uL (4.30-5.70) Hemoglobin 11.2 g/dL (13.0-17.5) Hematocrit 33.4 % (39.0-53.0) Mean Corpuscular Volume 93 fL (79-100) Mean Corpuscular Hemoglobin 31 pg (25-35) Mean Corpuscular Hemoglobin Concent 34 g/dL (31-37) Red Cell Distribution Width 13.5 % (11.5-14.5) Platelet Count 197 x10^3/uL (140-400) Neutrophils (%) (Auto) 61 % (31-73) Lymphocytes (%) (Auto) 24 % (24-48) Monocytes (%) (Auto) 9 % (0-9) Eosinophils (%) (Auto) 5 % (0-3) Basophils (%) (Auto) 1 % (0-3) Neutrophils # (Auto) 2.7 x10^3uL (1.8-7.7) Lymphocytes # (Auto) 1.1 x10^3/uL (1.0-4.8) Monocytes # (Auto) 0.4 x10^3/uL (0.0-1.1) Eosinophils # (Auto) 0.2 x10^3/uL (0.0-0.7) Basophils # (Auto) 0.0 x10^3/uL (0.0-0.2) Sodium Level 144 mmol/L (136-145) Potassium Level 4.4 mmol/L (3.5-5.1) Chloride Level 105 mmol/L (98-107) Carbon Dioxide Level 32 mmol/L (21-32) Anion Gap 7 (6-14) Blood Urea Nitrogen 24 mg/dL (8-26) Creatinine 1.2 mg/dL (0.7-1.3) Estimated GFR (Cockcroft-Gault) 57.8 BUN/Creatinine Ratio 20 (6-20) Glucose Level 112 mg/dL (70-99) Calcium Level 9.3 mg/dL (8.5-10.1) Magnesium Level 2.0 mg/dL (1.8-2.4) Total Bilirubin 0.6 mg/dL (0.2-1.0) Aspartate Amino Transf (AST/SGOT) 24 U/L (15-37) Alanine Aminotransferase (ALT/SGPT) 23 U/L (16-63) Alkaline Phosphatase 62 U/L (46-116) Creatine Kinase 96 U/L (39-308) Troponin I Quantitative < 0.017 ng/mL (0.000-0.055) FV-Uxm-S-Type Natriuretic Peptide 512 pg/mL (0-449) Total Protein 7.1 g/dL (6.4-8.2) Albumin 3.9 g/dL (3.4-5.0) Albumin/Globulin Ratio 1.2 (1.0-1.7) Thyroid Stimulating Hormone (TSH) 3.594 uIU/mL (0.358-3.74) Urine Collection Type Unknown Urine Color Yellow Urine Clarity Clear Urine pH 7.5 Urine Specific [place] 1.020 Urine Protein Negative mg/dL (NEG-TRACE) Urine Glucose (UA) Negative mg/dL (NEG) Urine Ketones (Stick) Negative mg/dL (NEG) Urine Blood Negative (NEG) Urine Nitrite Negative (NEG) Urine Bilirubin Negative (NEG) Urine Urobilinogen Dipstick 1.0 mg/dL (0.2 mg/dL) Urine Leukocyte Esterase Negative (NEG) Urine RBC 0 /HPF (0-2) Urine WBC 0 /HPF (0-4) Urine Squamous Epithelial Cells Few /LPF Urine Bacteria 0 /HPF (0-FEW) Urine Mucus Slight /LPF Urine Opiates Screen Neg (NEG) Urine Methadone Screen Neg (NEG) Urine Barbiturates Neg (NEG) Urine Phencyclidine Screen Neg (NEG) Urine Amphetamine/Methamphetamine Neg (NEG) Urine Benzodiazepines Screen Neg (NEG) Urine Cocaine Screen Neg (NEG) Urine Cannabinoids Screen Neg (NEG) Urine Ethyl Alcohol Neg (NEG) Laboratory Tests Test 07/09/18 11:10 07/09/18 13:05 White Blood Count 4.4 x10^3/uL (4.0-11.0) Red Blood Count 3.58 x10^6/uL (4.30-5.70) Hemoglobin 11.2 g/dL (13.0-17.5) Hematocrit 33.4 % (39.0-53.0) Mean Corpuscular Volume 93 fL (79-100) Mean Corpuscular Hemoglobin 31 pg (25-35) Mean Corpuscular Hemoglobin Concent 34 g/dL (31-37) Red Cell Distribution Width 13.5 % (11.5-14.5) Platelet Count 197 x10^3/uL (140-400) Neutrophils (%) (Auto) 61 % (31-73) Lymphocytes (%) (Auto) 24 % (24-48) Monocytes (%) (Auto) 9 % (0-9) Eosinophils (%) (Auto) 5 % (0-3) Basophils (%) (Auto) 1 % (0-3) Neutrophils # (Auto) 2.7 x10^3uL (1.8-7.7) Lymphocytes # (Auto) 1.1 x10^3/uL (1.0-4.8) Monocytes # (Auto) 0.4 x10^3/uL (0.0-1.1) Eosinophils # (Auto) 0.2 x10^3/uL (0.0-0.7) Basophils # (Auto) 0.0 x10^3/uL (0.0-0.2) Sodium Level 144 mmol/L (136-145) Potassium Level 4.4 mmol/L (3.5-5.1) Chloride Level 105 mmol/L (98-107) Carbon Dioxide Level 32 mmol/L (21-32) Anion Gap 7 (6-14) Blood Urea Nitrogen 24 mg/dL (8-26) Creatinine 1.2 mg/dL (0.7-1.3) Estimated GFR (Cockcroft-Gault) 57.8 BUN/Creatinine Ratio 20 (6-20) Glucose Level 112 mg/dL (70-99) Calcium Level 9.3 mg/dL (8.5-10.1) Magnesium Level 2.0 mg/dL (1.8-2.4) Total Bilirubin 0.6 mg/dL (0.2-1.0) Aspartate Amino Transf (AST/SGOT) 24 U/L (15-37) Alanine Aminotransferase (ALT/SGPT) 23 U/L (16-63) Alkaline Phosphatase 62 U/L (46-116) Creatine Kinase 96 U/L (39-308) Troponin I Quantitative < 0.017 ng/mL (0.000-0.055) IQ-Ldq-M-Type Natriuretic Peptide 512 pg/mL (0-449) Total Protein 7.1 g/dL (6.4-8.2) Albumin 3.9 g/dL (3.4-5.0) Albumin/Globulin Ratio 1.2 (1.0-1.7) Thyroid Stimulating Hormone (TSH) 3.594 uIU/mL (0.358-3.74) Urine Collection Type Unknown Urine Color Yellow Urine Clarity Clear Urine pH 7.5 Urine Specific [place] 1.020 Urine Protein Negative mg/dL (NEG-TRACE) Urine Glucose (UA) Negative mg/dL (NEG) Urine Ketones (Stick) Negative mg/dL (NEG) Urine Blood Negative (NEG) Urine Nitrite Negative (NEG) Urine Bilirubin Negative (NEG) Urine Urobilinogen Dipstick 1.0 mg/dL (0.2 mg/dL) Urine Leukocyte Esterase Negative (NEG) Urine RBC 0 /HPF (0-2) Urine WBC 0 /HPF (0-4) Urine Squamous Epithelial Cells Few /LPF Urine Bacteria 0 /HPF (0-FEW) Urine Mucus Slight /LPF Urine Opiates Screen Neg (NEG) Urine Methadone Screen Neg (NEG) Urine Barbiturates Neg (NEG) Urine Phencyclidine Screen Neg (NEG) Urine Amphetamine/Methamphetamine Neg (NEG) Urine Benzodiazepines Screen Neg (NEG) Urine Cocaine Screen Neg (NEG) Urine Cannabinoids Screen Neg (NEG) Urine Ethyl Alcohol Neg (NEG) Medications Current Medications Clonidine HCl (Catapres) 0.1 mg 1X ONCE PO Last administered on 07/09/18 11: 35; Start 07/09/18 at 10:45; Stop 07/09/18 at 10:50; Status DC Aspirin (Ecotrin) 81 mg DAILYWBKFT PO Last administered on 07/10/18 08:31; Start 07/10/18 at 08:00 Atorvastatin Calcium (Lipitor) 20 mg QHS PO Last administered on 07/09/18 21: 10; Start 07/09/18 at 21:00 Metoprolol Tartrate (Lopressor) 12.5 mg BID PO Last administered on 07/10/18 08:31; Start 07/09/18 at 21:00 Lisinopril (Prinivil) 5 mg DAILY PO Last administered on 07/10/18 08:33; Start 07/10/18 at 09:00 Ondansetron HCl (Zofran) 4 mg PRN Q6HRS PRN IV NAUSEA/VOMITING; Start 07/09/18 at 14:30 Acetaminophen (Tylenol) 650 mg PRN Q6HRS PRN PO Headaches, Temp > 101.5F; Start 07/09/18 at 14:30 Senna/Docusate Sodium (Senna Plus) 1 tab BID PO Last administered on 07/10/18 08:33; Start 07/09/18 at 21:00 Magnesium Hydroxide (Milk Of Magnesia) 2,400 mg PRN Q12HR PRN PO CONSTIPATION; Start 07/09/18 at 14:30 Heparin Sodium (Porcine) (Heparin Sodium) 5,000 unit Q8HRS SQ Last administered on 07/10/18at 06:09; Start 07/09/18 at 22:00 Risperidone (RisperDAL) 1 mg QHS PO Last administered on 07/09/18at 21:10; Start 07/09/18 at 21:00 Albuterol/ Ipratropium (Duoneb) 3 ml RTQID NEB Last administered on 07/10/18at 08:18; Start 07/09/18 at 16:00 Labetalol HCl (Normodyne Iv Push) 10 mg PRN Q4HRS PRN IVP HYPERTENSION, SEE COMMENTS; Start 07/09/18 at 14:45 Active Scripts Active Metoprolol Tartrate 25 Mg Tablet 12.5 Mg PO BID 30 Days Lisinopril 5 Mg Tablet 5 Mg PO DAILY 30 Days Atorvastatin Calcium 20 Mg Tablet 20 Mg PO QHS 30 Days Aspirin Ec (Aspirin) 81 Mg Tablet.dr 81 Mg PO DAILYWBKFT 30 Days Vitals/I & O Vital Sign - Last 24 Hours 07/09/18 07/09/18 07/09/18 07/09/18 10:34 10:54 11:32 11:35 Temp 97.6 97.6 Pulse 46 46 44 46 Resp 16 18 18 B/P (MAP) 226/72 (123) 198/76 (116) 225/79 (127) 226/72 Pulse Ox 99 97 99 O2 Delivery Room Air Room Air Room Air 07/09/18 07/09/18 07/09/18 07/09/18 11:54 12:06 12:24 13:00 Temp 97.6 97.6 Pulse 46 46 46 40 Resp 18 16 18 18 B/P (MAP) 207/72 (117) 195/59 (104) 185/65 (105) 159/54 (89) Pulse Ox 100 100 100 99 O2 Delivery Room Air Room Air Room Air Room Air 07/09/18 07/09/18 07/09/18 07/09/18 14:25 15:00 15:27 15:29 Temp 98.2 97.6 98.2 97.6 Pulse 56 45 Resp 16 16 B/P (MAP) 162/55 (90) 137/50 (79) Pulse Ox 99 98 O2 Delivery Room Air Room Air Room Air Room Air 07/09/18 07/09/18 07/09/18 07/09/18 15:46 19:00 20:31 21:12 Temp 97.6 98.0 97.6 98.0 Pulse 45 52 64 Resp 16 18 B/P (MAP) 137/50 (79) 125/59 (81) 125/59 Pulse Ox 99 98 O2 Delivery Room Air Room Air Room Air 07/09/18 07/10/18 07/10/18 07/10/18 23:00 02:58 07:00 08:19 Temp 97.8 98.2 97.7 97.8 98.2 97.7 Pulse 54 69 42 Resp 18 18 16 B/P (MAP) 129/79 (96) 118/57 (77) 138/54 (82) Pulse Ox 97 99 99 O2 Delivery Room Air Room Air Room Air Room Air 07/10/18 07/10/18 08:31 08:33 Pulse 55 55 B/P (MAP) 138/54 138/54 Intake and Output 07/09/18 07/09/18 07/10/18 15:00 23:00 07:00 Intake Total 180 ml Output Total 225 ml Balance -45 ml ESTRELLITA SANCHES MD Jul 10, 2018 09:28
[2018-07-10 11:00] VITALS: BP 135/51
--- NOTE | 2018-07-10 13:14 | NUR ---
DWIGHT consulted for NH placement. Chart reviewed and THOMAS RN. PT/OT recommends LTC placement. Spoke with pt's friend, Selwyn, regarding dc plan. Selwyn reports they are looking into NH placement possibly at [facility] and rehab. Discussed about LTC and SNU insurance coverage. Selwyn reports pt has not been providing him information to help apply for Medicaid because he does not want to go to NH. SW discussed Pt can transition as SNU and accepting facility can assist in filing for Medicaid. Selwyn reports APS was involved when pt was found wandering around and a level one assessment was completed. Selwyn states pt had 'shredded the certification statement' as he did not want to go to NH. Selwyn agreeable with DWIGHT sending referral to [facility]. DWIGHT phoned and faxed referral to [facility], phone: [phone], fax; [phone]. Spoke with Ange at facility and she will notify SW after speaking with DON. Pt acceptance and admission pending. Will continue to follow. THOMAS MORGAN.
[2018-07-10 15:00] VITALS: BP 145/49
--- NOTE | 2018-07-10 15:34 | NUR ---
DWIGHT following pt. [facility] declined to take pt stating pt needs to be in a locked floor. Discussed with Selwyn via phone and notified him about screening pt in various facilities to see who can accept pt. Selwyn agreeable and stated pt is not safe to go home. Selwyn states he works in [employer] for about 10-12 hours a day and pt is by himself at home. Selwyn states pt is very forgetful and he is concerned about his safety. DWIGHT discussed We are not able to force pt to go to [place] until pt is deemed incapable of making decision and discussed guardianship process. DWIGHT phoned and faxed referral to [facility], [facility], [facility], [facility], [facility], [facility], and [facility]. Pt acceptance and admission pending. Will continue to follow.
--- NOTE | 2018-07-10 16:18 | PDOC ---
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 patient chronically cognitively impaired with a guardian. neuro following. MRI brain no new stroke. had right pontine stroke 8 months ago. Falls - patient has fallen in the past, states he has not fallen in months Wheezing - emphysema on CXR - continue nebs Anemia - will monitor, H/O CVA - on statin and ASA, continue Dementia? - likely vascular, he will need skilled placement in the future, apprec s/w FEN - General PPX - SCDs DNR/DNI Inpatient for confusion and falls for at least 2 midnights History of Present Illness History of Present Illness no acute issues overnight. denies chest pain, sob, nausea vomiting diarrhea Vitals Vitals Vital Signs Date Time Temp Pulse Resp B/P (MAP) Pulse Ox O2 Delivery O2 Flow Rate FiO2 07/10/18 16:05 98 Room Air 07/10/18 15:00 97.5 53 16 145/49 (81) 97.5 Physical Exam General: Alert, Cooperative, No acute distress Lungs: Clear, Wheezing Abdomen: Normal bowel sounds, Soft, No tenderness, No hepatosplenomegaly, No masses Extremities: No clubbing, No cyanosis, No edema, Normal pulses, No tenderness/ swelling Skin: No rashes, No breakdown, No significant lesion Assessment and Plan Assessmemt and Plan Problems Medical Problems: (1) Anemia Status: Acute (2) CHF (congestive heart failure) Status: Acute (3) Hypertensive urgency Status: Acute (4) Sinus bradycardia Status: Acute Comment Review of Relevant I have reviewed the following items jorge (where applicable) has been applied. Labs Laboratory Tests Test 07/09/18 11:10 07/09/18 13:05 White Blood Count 4.4 x10^3/uL (4.0-11.0) Red Blood Count 3.58 x10^6/uL (4.30-5.70) Hemoglobin 11.2 g/dL (13.0-17.5) Hematocrit 33.4 % (39.0-53.0) Mean Corpuscular Volume 93 fL (79-100) Mean Corpuscular Hemoglobin 31 pg (25-35) Mean Corpuscular Hemoglobin Concent 34 g/dL (31-37) Red Cell Distribution Width 13.5 % (11.5-14.5) Platelet Count 197 x10^3/uL (140-400) Neutrophils (%) (Auto) 61 % (31-73) Lymphocytes (%) (Auto) 24 % (24-48) Monocytes (%) (Auto) 9 % (0-9) Eosinophils (%) (Auto) 5 % (0-3) Basophils (%) (Auto) 1 % (0-3) Neutrophils # (Auto) 2.7 x10^3uL (1.8-7.7) Lymphocytes # (Auto) 1.1 x10^3/uL (1.0-4.8) Monocytes # (Auto) 0.4 x10^3/uL (0.0-1.1) Eosinophils # (Auto) 0.2 x10^3/uL (0.0-0.7) Basophils # (Auto) 0.0 x10^3/uL (0.0-0.2) Sodium Level 144 mmol/L (136-145) Potassium Level 4.4 mmol/L (3.5-5.1) Chloride Level 105 mmol/L (98-107) Carbon Dioxide Level 32 mmol/L (21-32) Anion Gap 7 (6-14) Blood Urea Nitrogen 24 mg/dL (8-26) Creatinine 1.2 mg/dL (0.7-1.3) Estimated GFR (Cockcroft-Gault) 57.8 BUN/Creatinine Ratio 20 (6-20) Glucose Level 112 mg/dL (70-99) Calcium Level 9.3 mg/dL (8.5-10.1) Magnesium Level 2.0 mg/dL (1.8-2.4) Total Bilirubin 0.6 mg/dL (0.2-1.0) Aspartate Amino Transf (AST/SGOT) 24 U/L (15-37) Alanine Aminotransferase (ALT/SGPT) 23 U/L (16-63) Alkaline Phosphatase 62 U/L (46-116) Creatine Kinase 96 U/L (39-308) Troponin I Quantitative < 0.017 ng/mL (0.000-0.055) IP-Hvk-N-Type Natriuretic Peptide 512 pg/mL (0-449) Total Protein 7.1 g/dL (6.4-8.2) Albumin 3.9 g/dL (3.4-5.0) Albumin/Globulin Ratio 1.2 (1.0-1.7) Thyroid Stimulating Hormone (TSH) 3.594 uIU/mL (0.358-3.74) Urine Collection Type Unknown Urine Color Yellow Urine Clarity Clear Urine pH 7.5 Urine Specific [place] 1.020 Urine Protein Negative mg/dL (NEG-TRACE) Urine Glucose (UA) Negative mg/dL (NEG) Urine Ketones (Stick) Negative mg/dL (NEG) Urine Blood Negative (NEG) Urine Nitrite Negative (NEG) Urine Bilirubin Negative (NEG) Urine Urobilinogen Dipstick 1.0 mg/dL (0.2 mg/dL) Urine Leukocyte Esterase Negative (NEG) Urine RBC 0 /HPF (0-2) Urine WBC 0 /HPF (0-4) Urine Squamous Epithelial Cells Few /LPF Urine Bacteria 0 /HPF (0-FEW) Urine Mucus Slight /LPF Urine Opiates Screen Neg (NEG) Urine Methadone Screen Neg (NEG) Urine Barbiturates Neg (NEG) Urine Phencyclidine Screen Neg (NEG) Urine Amphetamine/Methamphetamine Neg (NEG) Urine Benzodiazepines Screen Neg (NEG) Urine Cocaine Screen Neg (NEG) Urine Cannabinoids Screen Neg (NEG) Urine Ethyl Alcohol Neg (NEG) Medications Current Medications Clonidine HCl (Catapres) 0.1 mg 1X ONCE PO Last administered on 07/09/18at 11: 35; Start 07/09/18 at 10:45; Stop 07/09/18 at 10:50; Status DC Aspirin (Ecotrin) 81 mg DAILYWBKFT PO Last administered on 07/10/18at 08:31; Start 07/10/18 at 08:00 Atorvastatin Calcium (Lipitor) 20 mg QHS PO Last administered on 07/09/18at 21: 10; Start 07/09/18 at 21:00 Metoprolol Tartrate (Lopressor) 12.5 mg BID PO Last administered on 07/10/18at 08:31; Start 07/09/18 at 21:00 Lisinopril (Prinivil) 5 mg DAILY PO Last administered on 07/10/18at 08:33; Start 07/10/18 at 09:00 Ondansetron HCl (Zofran) 4 mg PRN Q6HRS PRN IV NAUSEA/VOMITING; Start 07/09/18 at 14:30 Acetaminophen (Tylenol) 650 mg PRN Q6HRS PRN PO Headaches, Temp > 101.5F; Start 07/09/18 at 14:30 Senna/Docusate Sodium (Senna Plus) 1 tab BID PO Last administered on 07/10/18at 08:33; Start 07/09/18 at 21:00 Magnesium Hydroxide (Milk Of Magnesia) 2,400 mg PRN Q12HR PRN PO CONSTIPATION; Start 07/09/18 at 14:30 Heparin Sodium (Porcine) (Heparin Sodium) 5,000 unit Q8HRS SQ Last administered on 07/10/18at 13:48; Start 07/09/18 at 22:00 Risperidone (RisperDAL) 1 mg QHS PO Last administered on 07/09/18at 21:10; Start 07/09/18 at 21:00 Albuterol/ Ipratropium (Duoneb) 3 ml RTQID NEB Last administered on 07/10/18at 16:03; Start 07/09/18 at 16:00 Labetalol HCl (Normodyne Iv Push) 10 mg PRN Q4HRS PRN IVP HYPERTENSION, SEE COMMENTS; Start 07/09/18 at 14:45 Active Scripts Active Metoprolol Tartrate 25 Mg Tablet 12.5 Mg PO BID 30 Days Lisinopril 5 Mg Tablet 5 Mg PO DAILY 30 Days Atorvastatin Calcium 20 Mg Tablet 20 Mg PO QHS 30 Days Aspirin Ec (Aspirin) 81 Mg Tablet.dr 81 Mg PO DAILYWBKFT 30 Days Vitals/I & O Vital Sign - Last 24 Hours 07/09/18 07/09/18 07/09/18 07/09/18 19:00 20:31 21:12 23:00 Temp 98.0 97.8 98.0 97.8 Pulse 52 64 54 Resp 18 18 B/P (MAP) 125/59 (81) 125/59 129/79 (96) Pulse Ox 98 97 O2 Delivery Room Air Room Air Room Air 07/10/18 07/10/18 07/10/18 07/10/18 02:58 07:00 08:00 08:19 Temp 98.2 97.7 98.2 97.7 Pulse 69 42 Resp 18 16 B/P (MAP) 118/57 (77) 138/54 (82) Pulse Ox 99 99 O2 Delivery Room Air Room Air Room Air Room Air 07/10/18 07/10/18 07/10/18 07/10/18 08:31 08:33 11:00 11:44 Temp 97.7 97.7 Pulse 55 55 45 Resp 16 B/P (MAP) 138/54 138/54 135/51 (79) Pulse Ox 98 98 O2 Delivery Room Air Room Air 07/10/18 07/10/18 15:00 16:05 Temp 97.5 97.5 Pulse 53 Resp 16 B/P (MAP) 145/49 (81) Pulse Ox 97 98 O2 Delivery Room Air Room Air Intake and Output 07/09/18 07/09/18 07/10/18 15:00 23:00 07:00 Intake Total 180 ml Output Total 225 ml Balance -45 ml Nutrition Consultation Dietary Evaluation: Recommendations by RD: Increase Calorie Intake, Protein supplementation Comments: Will add ADA and glucerna TID to diet order Expected Outcomes/Goals: P.O. intake to meet >75% estimated energy needs Interpretation of weight loss: >10% in 6 months Malnutrition Findings: Food and Nutrition Intake (Mod: <75% est energy req 7days Body Fat Depletion (Non Severe: Mild Depletion Weight Status: Underweight HARSHA PENNINGTON MD Jul 10, 2018 16:18
[2018-07-10 19:00] VITALS: BP 131/54
[2018-07-10] MEDS: ATORVASTATIN CALCIUM 20 MG TABLET PO SCH (20:49)
[2018-07-10] MEDS: risperiDONE 1 MG TABLET. PO SCH (20:50)
[2018-07-10] MEDS: ACETAMINOPHEN 325 MG TABLET. PO PRN (22:41)
[2018-07-10 22:58] VITALS: BP 164/62
[2018-07-11 03:00] VITALS: BP 119/62
[2018-07-11] MEDS: HEPARIN for SUB-Q USE 5,000 UNIT/ML VIAL. SQ SCH ×3 (05:42→20:44)
[2018-07-11] MEDS: IPRATRPIUM/ALBUTEROL 0.5/2.5MG 3 ML NEBU. NEB SCH ×4 (06:15→19:40)
[2018-07-11 07:00] VITALS: BP 140/54
[2018-07-11] MEDS: LISINOPRIL 5 MG TABLET. PO SCH (09:03)
[2018-07-11] MEDS: ASPIRIN ENTERIC COATED 81 MG TABLET.DR. PO SCH (09:03)
[2018-07-11] MEDS: METOPROLOL TART IMMED RELEASE 25 MG TABLET. PO SCH ×2 (09:03→20:41)
[2018-07-11] MEDS: SENNOSIDES/DOCUSATE 8.6/50MG TABLET. PO SCH ×2 (09:03→20:41)
--- NOTE | 2018-07-11 09:11 | NUR ---
DWIGHT following pt. Spoke with Darlin at [facility] and discussed pt might need a wander guard as he wanders sometimes. Darlin to discuss case with DON to see if they are able to meet pt's needs. Spoke with Leo at [facility] and they will be able to admit pt tomorrow as long as pt is able to sign himself in. Will continue to follow. Addendum: 07/11/18 at 1033 by NORBERT QUINTANILLA Akilah will send a digital sales representative to visit pt.
--- NOTE | 2018-07-11 10:16 | PDOC ---
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 patient chronically cognitively impaired with a guardian. neuro following. MRI brain no new stroke. had right pontine stroke 8 months ago. Falls - patient has fallen in the past, states he has not fallen in months, lives alone Wheezing - emphysema on CXR - continue nebs Anemia - will monitor, H/O CVA - on statin and ASA, continue Dementia? - likely vascular, he will need skilled placement in the future, apprec s/w FEN - General PPX - SCDs DNR/DNI sw consult for placement History of Present Illness History of Present Illness no acute issues overnight. denies chest pain, sob, nausea vomiting diarrhea Vitals Vitals Vital Signs Date Time Temp Pulse Resp B/P (MAP) Pulse Ox O2 Delivery O2 Flow Rate FiO2 07/11/18 09:03 75 140/54 07/11/18 08:00 Room Air 07/11/18 07:00 97.4 16 95 97.4 Physical Exam General: Alert, Cooperative, No acute distress Lungs: Clear, Wheezing Abdomen: Normal bowel sounds, Soft, No tenderness, No hepatosplenomegaly, No masses Extremities: No clubbing, No cyanosis, No edema, Normal pulses, No tenderness/ swelling Skin: No rashes, No breakdown, No significant lesion Assessment and Plan Assessmemt and Plan Problems Medical Problems: (1) Anemia Status: Acute (2) CHF (congestive heart failure) Status: Acute (3) Hypertensive urgency Status: Acute (4) Sinus bradycardia Status: Acute Comment Review of Relevant I have reviewed the following items jorge (where applicable) has been applied. Labs Laboratory Tests Test 07/09/18 11:10 07/09/18 13:05 White Blood Count 4.4 x10^3/uL (4.0-11.0) Red Blood Count 3.58 x10^6/uL (4.30-5.70) Hemoglobin 11.2 g/dL (13.0-17.5) Hematocrit 33.4 % (39.0-53.0) Mean Corpuscular Volume 93 fL (79-100) Mean Corpuscular Hemoglobin 31 pg (25-35) Mean Corpuscular Hemoglobin Concent 34 g/dL (31-37) Red Cell Distribution Width 13.5 % (11.5-14.5) Platelet Count 197 x10^3/uL (140-400) Neutrophils (%) (Auto) 61 % (31-73) Lymphocytes (%) (Auto) 24 % (24-48) Monocytes (%) (Auto) 9 % (0-9) Eosinophils (%) (Auto) 5 % (0-3) Basophils (%) (Auto) 1 % (0-3) Neutrophils # (Auto) 2.7 x10^3uL (1.8-7.7) Lymphocytes # (Auto) 1.1 x10^3/uL (1.0-4.8) Monocytes # (Auto) 0.4 x10^3/uL (0.0-1.1) Eosinophils # (Auto) 0.2 x10^3/uL (0.0-0.7) Basophils # (Auto) 0.0 x10^3/uL (0.0-0.2) Sodium Level 144 mmol/L (136-145) Potassium Level 4.4 mmol/L (3.5-5.1) Chloride Level 105 mmol/L (98-107) Carbon Dioxide Level 32 mmol/L (21-32) Anion Gap 7 (6-14) Blood Urea Nitrogen 24 mg/dL (8-26) Creatinine 1.2 mg/dL (0.7-1.3) Estimated GFR (Cockcroft-Gault) 57.8 BUN/Creatinine Ratio 20 (6-20) Glucose Level 112 mg/dL (70-99) Calcium Level 9.3 mg/dL (8.5-10.1) Magnesium Level 2.0 mg/dL (1.8-2.4) Total Bilirubin 0.6 mg/dL (0.2-1.0) Aspartate Amino Transf (AST/SGOT) 24 U/L (15-37) Alanine Aminotransferase (ALT/SGPT) 23 U/L (16-63) Alkaline Phosphatase 62 U/L (46-116) Creatine Kinase 96 U/L (39-308) Troponin I Quantitative < 0.017 ng/mL (0.000-0.055) WZ-Hkz-A-Type Natriuretic Peptide 512 pg/mL (0-449) Total Protein 7.1 g/dL (6.4-8.2) Albumin 3.9 g/dL (3.4-5.0) Albumin/Globulin Ratio 1.2 (1.0-1.7) Thyroid Stimulating Hormone (TSH) 3.594 uIU/mL (0.358-3.74) Urine Collection Type Unknown Urine Color Yellow Urine Clarity Clear Urine pH 7.5 Urine Specific [place] 1.020 Urine Protein Negative mg/dL (NEG-TRACE) Urine Glucose (UA) Negative mg/dL (NEG) Urine Ketones (Stick) Negative mg/dL (NEG) Urine Blood Negative (NEG) Urine Nitrite Negative (NEG) Urine Bilirubin Negative (NEG) Urine Urobilinogen Dipstick 1.0 mg/dL (0.2 mg/dL) Urine Leukocyte Esterase Negative (NEG) Urine RBC 0 /HPF (0-2) Urine WBC 0 /HPF (0-4) Urine Squamous Epithelial Cells Few /LPF Urine Bacteria 0 /HPF (0-FEW) Urine Mucus Slight /LPF Urine Opiates Screen Neg (NEG) Urine Methadone Screen Neg (NEG) Urine Barbiturates Neg (NEG) Urine Phencyclidine Screen Neg (NEG) Urine Amphetamine/Methamphetamine Neg (NEG) Urine Benzodiazepines Screen Neg (NEG) Urine Cocaine Screen Neg (NEG) Urine Cannabinoids Screen Neg (NEG) Urine Ethyl Alcohol Neg (NEG) Medications Current Medications Clonidine HCl (Catapres) 0.1 mg 1X ONCE PO Last administered on 07/09/18at 11: 35; Start 07/09/18 at 10:45; Stop 07/09/18 at 10:50; Status DC Aspirin (Ecotrin) 81 mg DAILYWBKFT PO Last administered on 07/11/18at 09:03; Start 07/10/18 at 08:00 Atorvastatin Calcium (Lipitor) 20 mg QHS PO Last administered on 07/10/18at 20: 49; Start 07/09/18 at 21:00 Metoprolol Tartrate (Lopressor) 12.5 mg BID PO Last administered on 07/11/18at 09:03; Start 07/09/18 at 21:00 Lisinopril (Prinivil) 5 mg DAILY PO Last administered on 07/11/18at 09:03; Start 07/10/18 at 09:00 Ondansetron HCl (Zofran) 4 mg PRN Q6HRS PRN IV NAUSEA/VOMITING; Start 07/09/18 at 14:30 Acetaminophen (Tylenol) 650 mg PRN Q6HRS PRN PO Headaches, Temp > 101.5F Last administered on 07/10/18at 22:41; Start 07/09/18 at 14:30 Senna/Docusate Sodium (Senna Plus) 1 tab BID PO Last administered on 07/11/18at 09:03; Start 07/09/18 at 21:00 Magnesium Hydroxide (Milk Of Magnesia) 2,400 mg PRN Q12HR PRN PO CONSTIPATION; Start 07/09/18 at 14:30 Heparin Sodium (Porcine) (Heparin Sodium) 5,000 unit Q8HRS SQ Last administered on 07/10/18at 13:48; Start 07/09/18 at 22:00 Risperidone (RisperDAL) 1 mg QHS PO Last administered on 07/10/18at 20:50; Start 07/09/18 at 21:00 Albuterol/ Ipratropium (Duoneb) 3 ml RTQID NEB Last administered on 07/11/18at 06:15; Start 07/09/18 at 16:00 Labetalol HCl (Normodyne Iv Push) 10 mg PRN Q4HRS PRN IVP HYPERTENSION, SEE COMMENTS; Start 07/09/18 at 14:45 Active Scripts Active Metoprolol Tartrate 25 Mg Tablet 12.5 Mg PO BID 30 Days Lisinopril 5 Mg Tablet 5 Mg PO DAILY 30 Days Atorvastatin Calcium 20 Mg Tablet 20 Mg PO QHS 30 Days Aspirin Ec (Aspirin) 81 Mg Tablet. 81 Mg PO DAILYWBKFT 30 Days Vitals/I & O Vital Sign - Last 24 Hours 07/10/18 07/10/18 07/10/18 07/10/18 11:00 11:44 15:00 16:05 Temp 97.7 97.5 97.7 97.5 Pulse 45 53 Resp 16 16 B/P (MAP) 135/51 (79) 145/49 (81) Pulse Ox 98 98 97 98 O2 Delivery Room Air Room Air Room Air Room Air 07/10/18 07/10/18 07/10/18 07/10/18 19:00 20:00 20:09 20:49 Temp 98.4 98.4 Pulse 77 77 Resp 18 B/P (MAP) 131/54 (79) 131/54 Pulse Ox 100 98 O2 Delivery Room Air Room Air Room Air 07/10/18 07/11/18 07/11/18 07/11/18 22:58 03:00 06:10 07:00 Temp 98.8 98.1 97.4 98.8 98.1 97.4 Pulse 67 56 75 Resp 18 18 16 B/P (MAP) 164/62 (96) 119/62 (81) 140/54 (82) Pulse Ox 97 99 98 95 O2 Delivery Room Air Room Air Room Air Room Air 07/11/18 07/11/18 07/11/18 08:00 09:03 09:03 Pulse 75 75 B/P (MAP) 140/54 140/54 O2 Delivery Room Air Intake and Output 07/10/18 07/10/18 07/11/18 15:00 23:00 07:00 Intake Total 240 ml Output Total 225 ml Balance -225 ml 240 ml Nutrition Consultation Dietary Evaluation: Recommendations by RD: Increase Calorie Intake, Protein supplementation Comments: Will add ADA and glucerna TID to diet order Expected Outcomes/Goals: P.O. intake to meet >75% estimated energy needs Interpretation of weight loss: >10% in 6 months Malnutrition Findings: Food and Nutrition Intake (Mod: <75% est energy req 7days Body Fat Depletion (Non Severe: Mild Depletion Weight Status: Underweight HARSHA PENNINGTON MD Jul 11, 2018 10:16
--- NOTE | 2018-07-11 10:28 | PDOC ---
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 Failure to thrive at home, including falls and wandering Plan No additional neurological studies needed. care home transfer, I agreed it he needs a locked unit. Rehab modalities Subjective No complaints Objective Vital Signs Date Time Temp Pulse Resp B/P (MAP) Pulse Ox O2 Delivery O2 Flow Rate FiO2 07/11/18 09:03 75 140/54 07/11/18 08:00 Room Air 07/11/18 07:00 97.4 16 95 97.4 Intake and Output 07/11/18 06:59 Intake Total 240 ml Output Total 225 ml Balance 15 ml Intake Oral 240 ml Output Urine Total 225 ml # Voids 2 PHYSICAL EXAM Alert. Oriented to person. Thinks he is at home, does not know date PERRL. EOMI. CN: no focal findings. Muscle tone: normal. Muscle strength: 4/5 DTR: 2+ Plantar reflex: flexor Gait: not examined in bed. Sensory exam: no abnormal findings. No cerebellar signs elicited. Review of Relevant I have reviewed the following items jorge (where applicable) has been applied. Labs Laboratory Tests Test 07/09/18 11:10 07/09/18 13:05 White Blood Count 4.4 x10^3/uL (4.0-11.0) Red Blood Count 3.58 x10^6/uL (4.30-5.70) Hemoglobin 11.2 g/dL (13.0-17.5) Hematocrit 33.4 % (39.0-53.0) Mean Corpuscular Volume 93 fL (79-100) Mean Corpuscular Hemoglobin 31 pg (25-35) Mean Corpuscular Hemoglobin Concent 34 g/dL (31-37) Red Cell Distribution Width 13.5 % (11.5-14.5) Platelet Count 197 x10^3/uL (140-400) Neutrophils (%) (Auto) 61 % (31-73) Lymphocytes (%) (Auto) 24 % (24-48) Monocytes (%) (Auto) 9 % (0-9) Eosinophils (%) (Auto) 5 % (0-3) Basophils (%) (Auto) 1 % (0-3) Neutrophils # (Auto) 2.7 x10^3uL (1.8-7.7) Lymphocytes # (Auto) 1.1 x10^3/uL (1.0-4.8) Monocytes # (Auto) 0.4 x10^3/uL (0.0-1.1) Eosinophils # (Auto) 0.2 x10^3/uL (0.0-0.7) Basophils # (Auto) 0.0 x10^3/uL (0.0-0.2) Sodium Level 144 mmol/L (136-145) Potassium Level 4.4 mmol/L (3.5-5.1) Chloride Level 105 mmol/L (98-107) Carbon Dioxide Level 32 mmol/L (21-32) Anion Gap 7 (6-14) Blood Urea Nitrogen 24 mg/dL (8-26) Creatinine 1.2 mg/dL (0.7-1.3) Estimated GFR (Cockcroft-Gault) 57.8 BUN/Creatinine Ratio 20 (6-20) Glucose Level 112 mg/dL (70-99) Calcium Level 9.3 mg/dL (8.5-10.1) Magnesium Level 2.0 mg/dL (1.8-2.4) Total Bilirubin 0.6 mg/dL (0.2-1.0) Aspartate Amino Transf (AST/SGOT) 24 U/L (15-37) Alanine Aminotransferase (ALT/SGPT) 23 U/L (16-63) Alkaline Phosphatase 62 U/L (46-116) Creatine Kinase 96 U/L (39-308) Troponin I Quantitative < 0.017 ng/mL (0.000-0.055) QC-Hjs-A-Type Natriuretic Peptide 512 pg/mL (0-449) Total Protein 7.1 g/dL (6.4-8.2) Albumin 3.9 g/dL (3.4-5.0) Albumin/Globulin Ratio 1.2 (1.0-1.7) Thyroid Stimulating Hormone (TSH) 3.594 uIU/mL (0.358-3.74) Urine Collection Type Unknown Urine Color Yellow Urine Clarity Clear Urine pH 7.[address] 1.020 Urine Protein Negative mg/dL (NEG-TRACE) Urine Glucose (UA) Negative mg/dL (NEG) Urine Ketones (Stick) Negative mg/dL (NEG) Urine Blood Negative (NEG) Urine Nitrite Negative (NEG) Urine Bilirubin Negative (NEG) Urine Urobilinogen Dipstick 1.0 mg/dL (0.2 mg/dL) Urine Leukocyte Esterase Negative (NEG) Urine RBC 0 /HPF (0-2) Urine WBC 0 /HPF (0-4) Urine Squamous Epithelial Cells Few /LPF Urine Bacteria 0 /HPF (0-FEW) Urine Mucus Slight /LPF Urine Opiates Screen Neg (NEG) Urine Methadone Screen Neg (NEG) Urine Barbiturates Neg (NEG) Urine Phencyclidine Screen Neg (NEG) Urine Amphetamine/Methamphetamine Neg (NEG) Urine Benzodiazepines Screen Neg (NEG) Urine Cocaine Screen Neg (NEG) Urine Cannabinoids Screen Neg (NEG) Urine Ethyl Alcohol Neg (NEG) Medications Current Medications Clonidine HCl (Catapres) 0.1 mg 1X ONCE PO Last administered on 07/09/18at 11: 35; Start 07/09/18 at 10:45; Stop 07/09/18 at 10:50; Status DC Aspirin (Ecotrin) 81 mg DAILYWBKFT PO Last administered on 07/11/18 09:03; Start 07/10/18 at 08:00 Atorvastatin Calcium (Lipitor) 20 mg QHS PO Last administered on 07/10/18at 20: 49; Start 07/09/18 at 21:00 Metoprolol Tartrate (Lopressor) 12.5 mg BID PO Last administered on 07/11/18 09:03; Start 07/09/18 at 21:00 Lisinopril (Prinivil) 5 mg DAILY PO Last administered on 07/11/18at 09:03; Start 07/10/18 at 09:00 Ondansetron HCl (Zofran) 4 mg PRN Q6HRS PRN IV NAUSEA/VOMITING; Start 07/09/18 at 14:30 Acetaminophen (Tylenol) 650 mg PRN Q6HRS PRN PO Headaches, Temp > 101.5F Last administered on 07/10/18at 22:41; Start 07/09/18 at 14:30 Senna/Docusate Sodium (Senna Plus) 1 tab BID PO Last administered on 07/11/18at 09:03; Start 07/09/18 at 21:00 Magnesium Hydroxide (Milk Of Magnesia) 2,400 mg PRN Q12HR PRN PO CONSTIPATION; Start 07/09/18 at 14:30 Heparin Sodium (Porcine) (Heparin Sodium) 5,000 unit Q8HRS SQ Last administered on 07/10/18at 13:48; Start 07/09/18 at 22:00 Risperidone (RisperDAL) 1 mg QHS PO Last administered on 07/10/18at 20:50; Start 07/09/18 at 21:00 Albuterol/ Ipratropium (Duoneb) 3 ml RTQID NEB Last administered on 07/11/18at 06:15; Start 07/09/18 at 16:00 Labetalol HCl (Normodyne Iv Push) 10 mg PRN Q4HRS PRN IVP HYPERTENSION, SEE COMMENTS; Start 07/09/18 at 14:45 Active Scripts Active Metoprolol Tartrate 25 Mg Tablet 12.5 Mg PO BID 30 Days Lisinopril 5 Mg Tablet 5 Mg PO DAILY 30 Days Atorvastatin Calcium 20 Mg Tablet 20 Mg PO QHS 30 Days Aspirin Ec (Aspirin) 81 Mg Tablet.dr 81 Mg PO DAILYWBKFT 30 Days Vitals/I & O Vital Sign - Last 24 Hours 07/10/18 07/10/18 07/10/18 07/10/18 11:00 11:44 15:00 16:05 Temp 97.7 97.5 97.7 97.5 Pulse 45 53 Resp 16 16 B/P (MAP) 135/51 (79) 145/49 (81) Pulse Ox 98 98 97 98 O2 Delivery Room Air Room Air Room Air Room Air 07/10/18 07/10/18 07/10/18 07/10/18 19:00 20:00 20:09 20:49 Temp 98.4 98.4 Pulse 77 77 Resp 18 B/P (MAP) 131/54 (79) 131/54 Pulse Ox 100 98 O2 Delivery Room Air Room Air Room Air 07/10/18 07/11/18 07/11/18 07/11/18 22:58 03:00 06:10 07:00 Temp 98.8 98.1 97.4 98.8 98.1 97.4 Pulse 67 56 75 Resp 18 18 16 B/P (MAP) 164/62 (96) 119/62 (81) 140/54 (82) Pulse Ox 97 99 98 95 O2 Delivery Room Air Room Air Room Air Room Air 07/11/18 07/11/18 07/11/18 08:00 09:03 09:03 Pulse 75 75 B/P (MAP) 140/54 140/54 O2 Delivery Room Air Intake and Output 07/10/18 07/10/18 07/11/18 14:59 22:59 06:59 Intake Total 240 ml Output Total 225 ml Balance -225 ml 240 ml ESTRELLITA SANCHES MD Jul 11, 2018 10:28
[2018-07-11 11:00] VITALS: BP 147/64
--- NOTE | 2018-07-11 11:10 | NUR ---
Referral also faxed to [facility]. Received a voice mail with Cristina pt's former APS worker, phone: [phone] who stated case was closed and new case needs to be opened if their assistance is needed. She reported she believed Selwyn was Guardian/POA. Spoke with Selwyn and he stated he did not apply to pt's guardian and does not have a document to show he is POA as well. DWIGHT discussed barriers in finding placement as there is no legal guardian to sign pt into [place] at this time. Will await for [facility] assessment to see if they can accept pt. Addendum: 07/11/18 at 1629 by NORBERT QUINTANILLA [facility] refused to accept pt unless DPOA or guardian is in place. [facility] and [facility] also declined as well. Visited pt with Naresh from [facility] and discussed plan. Pt agreeable. Will await to hear Akilah's decision tomorrow.
[2018-07-11 15:00] VITALS: BP 133/67
[2018-07-11 19:00] VITALS: BP 143/55
[2018-07-11] MEDS: ATORVASTATIN CALCIUM 20 MG TABLET PO SCH (20:40)
[2018-07-11] MEDS: risperiDONE 1 MG TABLET. PO SCH (20:40)
[2018-07-11] MEDS: ACETAMINOPHEN 325 MG TABLET. PO PRN (20:41)
[2018-07-11 23:00] VITALS: BP 127/59
[2018-07-12 03:00] VITALS: BP 147/50
[2018-07-12] MEDS: HEPARIN for SUB-Q USE 5,000 UNIT/ML VIAL. SQ SCH ×3 (06:00→22:00)
[2018-07-12 07:00] VITALS: BP 113/50
[2018-07-12] MEDS: IPRATRPIUM/ALBUTEROL 0.5/2.5MG 3 ML NEBU. NEB SCH ×4 (07:14→20:53)
[2018-07-12] MEDS: SENNOSIDES/DOCUSATE 8.6/50MG TABLET. PO SCH ×2 (08:29→21:30)
[2018-07-12] MEDS: ACETAMINOPHEN 325 MG TABLET. PO PRN (08:29)
[2018-07-12] MEDS: LISINOPRIL 5 MG TABLET. PO SCH (08:30)
[2018-07-12] MEDS: METOPROLOL TART IMMED RELEASE 25 MG TABLET. PO SCH ×2 (08:30→21:30)
[2018-07-12] MEDS: ASPIRIN ENTERIC COATED 81 MG TABLET.DR. PO SCH (08:34)
[2018-07-12 11:00] VITALS: BP 159/59
--- NOTE | 2018-07-12 11:10 | NUR ---
SW following pt. Spoke with Savita, phone: [phone] at [facility] that they will admit pt as long as they are able to get some financial information from pt's friend Selwyn. Left a voice mail to Selwyn requesting a call back. Spoke with Leo at [facility] and he is coming to visit pt with DON today. Will continue to follow.
--- NOTE | 2018-07-12 14:29 | PDOC ---
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 Failure to thrive at home, including falls and wandering Plan No additional neurological studies needed. longterm transfer, I agreed it he needs a locked unit. Rehab modalities Discussed with care home sales representative electric service Subjective None Objective Vital Signs Date Time Temp Pulse Resp B/P (MAP) Pulse Ox O2 Delivery O2 Flow Rate FiO2 07/12/18 11:38 100 Room Air 07/12/18 11:00 97.9 57 18 159/59 (92) 97.9 Intake and Output 07/12/18 07:00 Intake Total 1100 ml Output Total 1 ml Balance 1099 ml Intake Oral 1100 ml Output Urine Total 1 ml # Voids 3 # Bowel Movements 1 PHYSICAL EXAM Alert. Oriented to person. Thinks he is at home, does not know date PERRL. EOMI. CN: no focal findings. Muscle tone: normal. Muscle strength: 4/5 DTR: 2+ Plantar reflex: flexor Gait: not examined in bed. Sensory exam: no abnormal findings. No cerebellar signs elicited. Review of Relevant I have reviewed the following items jorge (where applicable) has been applied. Medications Current Medications Clonidine HCl (Catapres) 0.1 mg 1X ONCE PO Last administered on 07/09/18at 11: 35; Start 07/09/18 at 10:45; Stop 07/09/18 at 10:50; Status DC Aspirin (Ecotrin) 81 mg DAILYWBKFT PO Last administered on 07/12/18at 08:34; Start 07/10/18 at 08:00 Atorvastatin Calcium (Lipitor) 20 mg QHS PO Last administered on 07/11/18at 20: 40; Start 07/09/18 at 21:00 Metoprolol Tartrate (Lopressor) 12.5 mg BID PO Last administered on 07/12/18at 08:30; Start 07/09/18 at 21:00 Lisinopril (Prinivil) 5 mg DAILY PO Last administered on 07/12/18at 08:30; Start 07/10/18 at 09:00 Ondansetron HCl (Zofran) 4 mg PRN Q6HRS PRN IV NAUSEA/VOMITING; Start 07/09/18 at 14:30 Acetaminophen (Tylenol) 650 mg PRN Q6HRS PRN PO Headaches, Temp > 101.5F Last administered on 07/11/18at 20:41; Start 07/09/18 at 14:30 Senna/Docusate Sodium (Senna Plus) 1 tab BID PO Last administered on 07/12/18at 08:29; Start 07/09/18 at 21:00 Magnesium Hydroxide (Milk Of Magnesia) 2,400 mg PRN Q12HR PRN PO CONSTIPATION; Start 07/09/18 at 14:30 Heparin Sodium (Porcine) (Heparin Sodium) 5,000 unit Q8HRS SQ Last administered on 07/11/18at 13:44; Start 07/09/18 at 22:00 Risperidone (RisperDAL) 1 mg QHS PO Last administered on 07/11/18at 20:40; Start 07/09/18 at 21:00 Albuterol/ Ipratropium (Duoneb) 3 ml RTQID NEB Last administered on 07/12/18at 11:38; Start 07/09/18 at 16:00 Labetalol HCl (Normodyne Iv Push) 10 mg PRN Q4HRS PRN IVP HYPERTENSION, SEE COMMENTS; Start 07/09/18 at 14:45 Active Scripts Active Metoprolol Tartrate 25 Mg Tablet 12.5 Mg PO BID 30 Days Lisinopril 5 Mg Tablet 5 Mg PO DAILY 30 Days Atorvastatin Calcium 20 Mg Tablet 20 Mg PO QHS 30 Days Aspirin Ec (Aspirin) 81 Mg Tablet. 81 Mg PO DAILYWBKFT 30 Days Vitals/I & O Vital Sign - Last 24 Hours 07/11/18 07/11/18 07/11/18 07/11/18 15:00 15:30 19:00 19:30 Temp 98.2 98.8 98.2 98.8 Pulse 66 71 Resp 16 16 B/P (MAP) 133/67 (89) 143/55 (84) Pulse Ox 100 98 99 O2 Delivery Room Air Room Air Room Air Room Air 07/11/18 07/11/18 07/11/18 07/12/18 19:43 20:41 23:00 03:00 Temp 98.8 98.4 98.8 98.4 Pulse 71 79 64 Resp 16 16 B/P (MAP) 143/55 127/59 (81) 147/50 (82) Pulse Ox 97 99 O2 Delivery Room Air Room Air Room Air 07/12/18 07/12/18 07/12/18 07/12/18 07:00 07:15 08:00 08:30 Temp 98.1 98.1 Pulse 60 64 Resp 16 B/P (MAP) 113/50 (71) 147/50 Pulse Ox 98 100 O2 Delivery Room Air Room Air Room Air 07/12/18 07/12/18 07/12/18 08:30 11:00 11:38 Temp 97.9 97.9 Pulse 64 57 Resp 18 B/P (MAP) 147/50 159/59 (92) Pulse Ox 100 100 O2 Delivery Room Air Room Air Intake and Output 07/11/18 07/11/18 07/12/18 15:00 23:00 07:00 Intake Total 700 ml 250 ml 150 ml Output Total 1 ml Balance 700 ml 250 ml 149 ml ESTRELLITA SANCHES MD Jul 12, 2018 14:29
[2018-07-12 15:00] VITALS: BP 90/60
--- NOTE | 2018-07-12 16:00 | NUR ---
SW following pt. Spoke with Savita at [facility] and they are only waiting to get bank statement from pt's friend, Selwyn (spoke with Selwyn and confirmed, he will be taking off work tomorrow to provide them with pt's bank statement). [facility] will be able to admit pt tomorrow after receiving bank statements. Savita reported they have all other information they needed from pt today. Will continue to follow. THOMAS RN and Physician.
--- NOTE | 2018-07-12 17:49 | PDOC ---
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 patient chronically cognitively impaired with a guardian. neuro following. MRI brain no new stroke. had right pontine stroke 8 months ago. Falls - patient has fallen in the past, states he has not fallen in months, lives alone Wheezing - emphysema on CXR - continue nebs Anemia - will monitor, H/O CVA - on statin and ASA, continue Dementia? - likely vascular, he will need skilled placement in the future, apprec s/w FEN - General PPX - SCDs DNR/DNI sw consult for placement History of Present Illness History of Present Illness no acute issues overnight. denies chest pain, sob, nausea vomiting diarrhea Vitals Vitals Vital Signs Date Time Temp Pulse Resp B/P (MAP) Pulse Ox O2 Delivery O2 Flow Rate FiO2 07/12/18 15:23 100 Room Air 07/12/18 15:00 98.1 63 16 90/60 (70) 98.1 Physical Exam General: Alert, Cooperative, No acute distress Lungs: Clear, Wheezing Abdomen: Normal bowel sounds, Soft, No tenderness, No hepatosplenomegaly, No masses Extremities: No clubbing, No cyanosis, No edema, Normal pulses, No tenderness/ swelling Skin: No rashes, No breakdown, No significant lesion Assessment and Plan Assessmemt and Plan Problems Medical Problems: (1) Anemia Status: Acute (2) CHF (congestive heart failure) Status: Acute (3) Hypertensive urgency Status: Acute (4) Sinus bradycardia Status: Acute Comment Review of Relevant I have reviewed the following items jorge (where applicable) has been applied. Medications Current Medications Clonidine HCl (Catapres) 0.1 mg 1X ONCE PO Last administered on 07/09/18at 11: 35; Start 07/09/18 at 10:45; Stop 07/09/18 at 10:50; Status DC Aspirin (Ecotrin) 81 mg DAILYWBKFT PO Last administered on 07/12/18at 08:34; Start 07/10/18 at 08:00 Atorvastatin Calcium (Lipitor) 20 mg QHS PO Last administered on 07/11/18at 20: 40; Start 07/09/18 at 21:00 Metoprolol Tartrate (Lopressor) 12.5 mg BID PO Last administered on 07/12/18at 08:30; Start 07/09/18 at 21:00 Lisinopril (Prinivil) 5 mg DAILY PO Last administered on 07/12/18at 08:30; Start 07/10/18 at 09:00 Ondansetron HCl (Zofran) 4 mg PRN Q6HRS PRN IV NAUSEA/VOMITING; Start 07/09/18 at 14:30 Acetaminophen (Tylenol) 650 mg PRN Q6HRS PRN PO Headaches, Temp > 101.5F Last administered on 07/11/18at 20:41; Start 07/09/18 at 14:30 Senna/Docusate Sodium (Senna Plus) 1 tab BID PO Last administered on 07/12/18at 08:29; Start 07/09/18 at 21:00 Magnesium Hydroxide (Milk Of Magnesia) 2,400 mg PRN Q12HR PRN PO CONSTIPATION; Start 07/09/18 at 14:30 Heparin Sodium (Porcine) (Heparin Sodium) 5,000 unit Q8HRS SQ Last administered on 07/11/18at 13:44; Start 07/09/18 at 22:00 Risperidone (RisperDAL) 1 mg QHS PO Last administered on 07/11/18at 20:40; Start 07/09/18 at 21:00 Albuterol/ Ipratropium (Duoneb) 3 ml RTQID NEB Last administered on 07/12/18at 15:22; Start 07/09/18 at 16:00 Labetalol HCl (Normodyne Iv Push) 10 mg PRN Q4HRS PRN IVP HYPERTENSION, SEE COMMENTS; Start 07/09/18 at 14:45 Active Scripts Active Metoprolol Tartrate 25 Mg Tablet 12.5 Mg PO BID 30 Days Lisinopril 5 Mg Tablet 5 Mg PO DAILY 30 Days Atorvastatin Calcium 20 Mg Tablet 20 Mg PO QHS 30 Days Aspirin Ec (Aspirin) 81 Mg Tablet.dr 81 Mg PO DAILYWBKFT 30 Days Vitals/I & O Vital Sign - Last 24 Hours 07/11/18 07/11/18 07/11/18 07/11/18 19:00 19:30 19:43 20:41 Temp 98.8 98.8 Pulse 71 71 Resp 16 B/P (MAP) 143/55 (84) 143/55 Pulse Ox 99 O2 Delivery Room Air Room Air Room Air 07/11/18 07/12/18 07/12/18 07/12/18 23:00 03:00 07:00 07:15 Temp 98.8 98.4 98.1 98.8 98.4 98.1 Pulse 79 64 60 Resp 16 16 16 B/P (MAP) 127/59 (81) 147/50 (82) 113/50 (71) Pulse Ox 97 99 98 100 O2 Delivery Room Air Room Air Room Air Room Air 07/12/18 07/12/18 07/12/18 07/12/18 08:00 08:30 08:30 11:00 Temp 97.9 97.9 Pulse 64 64 57 Resp 18 B/P (MAP) 147/50 147/50 159/59 (92) Pulse Ox 100 O2 Delivery Room Air Room Air 07/12/18 07/12/18 07/12/18 11:38 15:00 15:23 Temp 98.1 98.1 Pulse 63 Resp 16 B/P (MAP) 90/60 (70) Pulse Ox 100 98 100 O2 Delivery Room Air Room Air Room Air Intake and Output 07/11/18 07/11/18 07/12/18 15:00 23:00 07:00 Intake Total 700 ml 250 ml 150 ml Output Total 1 ml Balance 700 ml 250 ml 149 ml Nutrition Consultation Dietary Evaluation: Recommendations by RD: Increase Calorie Intake, Protein supplementation Comments: Will add ADA and glucerna TID to diet order Expected Outcomes/Goals: P.O. intake to meet >75% estimated energy needs Interpretation of weight loss: >10% in 6 months Malnutrition Findings: Food and Nutrition Intake (Mod: <75% est energy req 7days Body Fat Depletion (Non Severe: Mild Depletion Weight Status: Underweight HARSHA PENNINGTON MD Jul 12, 2018 17:49
[2018-07-12 19:00] VITALS: BP 166/70
[2018-07-12] MEDS: ATORVASTATIN CALCIUM 20 MG TABLET PO SCH (21:30)
[2018-07-12] MEDS: risperiDONE 1 MG TABLET. PO SCH (21:30)
[2018-07-12 23:00] VITALS: BP 140/73
--- NOTE | 2018-07-13 01:45 | NUR ---
Patient's 2200 heparin not administered, as patient is asleep in chair, and he is quite ambulatory, Monitoring...
[2018-07-13 03:00] VITALS: BP 167/74
[2018-07-13] MEDS: HEPARIN for SUB-Q USE 5,000 UNIT/ML VIAL. SQ SCH ×2 (06:00→11:52)
--- NOTE | 2018-07-13 06:02 | NUR ---
Patient assisted to toilet, noted coccyx/sacrum reddened as patient pulled up his pants, to place calazyme and foam pad in room for use with next toileting. Monitoring.
--- NOTE | 2018-07-13 06:29 | NUR ---
CIRCULAR KNITTER HELPER assisted patient to toilet, calazime and foam pad applied while up, heparin not given at this time, as is up frequently.
[2018-07-13 07:00] VITALS: BP 131/47
[2018-07-13] MEDS: IPRATRPIUM/ALBUTEROL 0.5/2.5MG 3 ML NEBU. NEB SCH ×3 (07:07→15:09)
[2018-07-13] MEDS: SENNOSIDES/DOCUSATE 8.6/50MG TABLET. PO SCH (08:12)
[2018-07-13] MEDS: ASPIRIN ENTERIC COATED 81 MG TABLET.DR. PO SCH (08:12)
[2018-07-13] MEDS: LISINOPRIL 5 MG TABLET. PO SCH (08:12)
[2018-07-13] MEDS: METOPROLOL TART IMMED RELEASE 25 MG TABLET. PO SCH ×2 (08:12→08:15)
[2018-07-13 11:00] VITALS: BP 119/51
--- NOTE | 2018-07-13 11:17 | NUR ---
DWIGHT following pt. Spoke with Selwyn who reported he did receive most recent bank statements. Naresh from [facility] assisted pt in calling [employer] and they stated they had mailed new statements on 07/10/18. They declined to provide more information due to privacy policies. Selwyn stated he will get off work around lunch time and go to [employer] to check PO Box. DWIGHT discussed pt is ready for dc today and encouraged Selwyn to bring documents to hospital as soon as possible. THOMAS RN and Physician. Will continue to follow.
--- NOTE | 2018-07-13 12:00 | SNU/HH DC ---
DISCHARGE ORDERS DISCHARGE INFORMATION: FINAL DIAGNOSIS Problems Medical Problems: (1) Anemia Status: Acute (2) CHF (congestive heart failure) Status: Acute (3) Hypertensive urgency Status: Acute (4) Sinus bradycardia Status: Acute CONDITION ON DISCHARGE: Stable CODE STATUS: Code Status: Full RESIDENTIAL: SNF STAY <30 DAYS: Yes HOSPICE: HOSPICE: No HOSPICE EVAL & TREAT: No POST DISCHARGE ORDERS: ACTIVITY ORDERS: Activity as tolerated, Avoid exertion WEIGHT BEARING STATUS: No restrictions DIET AFTER DISCHARGE: Cardiac TREATMENT/EQUIPMENT ORDERS: ADAPTIVE EQUIPMENT NEEDED: None Physical Therapy For: Evalulation/Treatment Occupational Therapy For: Evaluation/Treatment Speech Language Pathology For: Evaluation/Treatment DISCHARGE MEDICATIONS: Home Meds Active Scripts Metoprolol Tartrate (METOPROLOL TARTRATE) 25 Mg Tablet, 12.5 MG PO BID for 30 Days, #30 TAB Prov:KIMBERLEE MARQUIS MD 04/30/17 Lisinopril (LISINOPRIL) 5 Mg Tablet, 5 MG PO DAILY for 30 Days, #30 TAB Prov:KIMBERLEE MARQUIS MD 04/30/17 Atorvastatin Calcium (ATORVASTATIN CALCIUM) 20 Mg Tablet, 20 MG PO QHS for 30 Days, #30 TAB Prov:KIMBERLEE MARQUIS MD 04/30/17 Aspirin (ASPIRIN EC) 81 Mg Tablet.dr, 81 MG PO DAILYWBKFT for 30 Days, #30 TAB.SR Prov:KIMBERLEE MARQUIS MD 04/30/17 KAREEN ANAYA III, DO Jul 13, 2018 12:00
--- NOTE | 2018-07-13 13:07 | PDOC ---
PROGRESS NOTES Chief Complaint Chief Complaint Patient resting comfortably today. [facility] with [facility] History of Present Illness History of Present Illness Patient seen and examined. No acute issues overnight. denies chest pain, sob, nausea vomiting diarrhea Vitals Vitals Vital Signs Date Time Temp Pulse Resp B/P (MAP) Pulse Ox O2 Delivery O2 Flow Rate FiO2 07/13/18 11:20 99 Room Air 07/13/18 11:00 96.6 65 16 119/51 (73) 96.6 Physical Exam General: Alert, Cooperative, No acute distress Heart: Regular rate, Normal S1, Normal S2 Lungs: Clear, Wheezing Abdomen: Normal bowel sounds, Soft, No tenderness, No hepatosplenomegaly, No masses Extremities: No clubbing, No cyanosis, No edema, Normal pulses, No tenderness/ swelling Skin: No rashes, No breakdown, No significant lesion Review of Systems Review of Systems weakness co hunger Assessment and Plan Assessmemt and Plan Problems Medical Problems: (1) Anemia Status: Acute (2) CHF (congestive heart failure) Status: Acute (3) Hypertensive urgency Status: Acute (4) Sinus bradycardia Status: Acute Assessment: Hypertensive encephalopathy with underlying dementia following TBI Recent falls Bradycardia Emphysema Anemia Failure to thrive History of CVA Dementia, likely vascular Plan: Neuro: MRI brain no new stroke, prior right pontine stroke 8 mo ago Bradycardic today - will decrease metoprolol dose to 6.125 mg BID Continue home meds Follow up with PCP in 7-10 days Dispo: Discharge to [facility] SNU today, patient is DNR/DNI Comment Review of Relevant I have reviewed the following items jorge (where applicable) has been applied. Medications Current Medications Clonidine HCl (Catapres) 0.1 mg 1X ONCE PO Last administered on 07/09/18at 11: 35; Start 07/09/18 at 10:45; Stop 07/09/18 at 10:50; Status DC Aspirin (Ecotrin) 81 mg DAILYWBKFT PO Last administered on 07/13/18at 08:12; Start 07/10/18 at 08:00 Atorvastatin Calcium (Lipitor) 20 mg QHS PO Last administered on 07/12/18at 21: 30; Start 07/09/18 at 21:00 Metoprolol Tartrate (Lopressor) 12.5 mg BID PO Last administered on 07/12/18 21:30; Start 07/09/18 at 21:00 Lisinopril (Prinivil) 5 mg DAILY PO Last administered on 07/13/18 08:12; Start 07/10/18 at 09:00 Ondansetron HCl (Zofran) 4 mg PRN Q6HRS PRN IV NAUSEA/VOMITING; Start 07/09/18 at 14:30 Acetaminophen (Tylenol) 650 mg PRN Q6HRS PRN PO Headaches, Temp > 101.5F Last administered on 07/11/18 20:41; Start 07/09/18 at 14:30 Senna/Docusate Sodium (Senna Plus) 1 tab BID PO Last administered on 07/13/18 08:12; Start 07/09/18 at 21:00 Magnesium Hydroxide (Milk Of Magnesia) 2,400 mg PRN Q12HR PRN PO CONSTIPATION; Start 07/09/18 at 14:30 Heparin Sodium (Porcine) (Heparin Sodium) 5,000 unit Q8HRS SQ Last administered on 07/11/18 13:44; Start 07/09/18 at 22:00 Risperidone (RisperDAL) 1 mg QHS PO Last administered on 07/12/18 21:30; Start 07/09/18 at 21:00 Albuterol/ Ipratropium (Duoneb) 3 ml RTQID NEB Last administered on 07/13/18at 11:11; Start 07/09/18 at 16:00 Labetalol HCl (Normodyne Iv Push) 10 mg PRN Q4HRS PRN IVP HYPERTENSION, SEE COMMENTS; Start 07/09/18 at 14:45 Lorazepam (Ativan) 0.5 mg PRN Q6HRS PRN IV ANXIETY / AGITATION Last administered on 07/12/18 19:24; Start 07/12/18 at 19:15 Active Scripts Active Metoprolol Tartrate 25 Mg Tablet 12.5 Mg PO BID 30 Days Lisinopril 5 Mg Tablet 5 Mg PO DAILY 30 Days Atorvastatin Calcium 20 Mg Tablet 20 Mg PO QHS 30 Days Aspirin Ec (Aspirin) 81 Mg Tablet.dr 81 Mg PO DAILYWBKFT 30 Days Vitals/I & O Vital Sign - Last 24 Hours 07/12/18 07/12/18 07/12/18 07/12/18 15:00 15:23 19:00 19:45 Temp 98.1 97.4 98.1 97.4 Pulse 63 76 Resp 16 16 B/P (MAP) 90/60 (70) 166/70 (102) Pulse Ox 98 100 100 O2 Delivery Room Air Room Air Room Air Room Air 07/12/18 07/12/18 07/12/18 07/13/18 20:52 21:30 23:00 03:00 Temp 97.9 97.9 97.9 97.9 Pulse 76 73 54 Resp 16 16 B/P (MAP) 166/70 140/73 (95) 167/74 (105) Pulse Ox 96 98 99 O2 Delivery Room Air Room Air Room Air 07/13/18 07/13/18 07/13/18 07/13/18 07:00 07:09 08:00 08:12 Temp 98.0 98.0 Pulse 55 Resp 16 B/P (MAP) 131/47 (75) 131/47 Pulse Ox 98 98 O2 Delivery Room Air Room Air Room Air 07/13/18 07/13/18 07/13/18 08:15 11:00 11:20 Temp 96.6 96.6 Pulse 55 65 Resp 16 B/P (MAP) 131/47 119/51 (73) Pulse Ox 95 99 O2 Delivery Room Air Room Air Intake and Output 07/12/18 07/12/18 07/13/18 14:59 22:59 06:59 Intake Total 150 ml 120 ml Output Total 1 ml Balance 149 ml 120 ml Nutrition Consultation Dietary Evaluation: Recommendations by RD: Increase Calorie Intake, Protein supplementation Comments: Will add ADA and glucerna TID to diet order Expected Outcomes/Goals: P.O. intake to meet >75% estimated energy needs Interpretation of weight loss: >10% in 6 months Malnutrition Findings: Food and Nutrition Intake (Mod: <75% est energy req 7days Body Fat Depletion (Non Severe: Mild Depletion Weight Status: Underweight CASTLE,NIAL K III DO Jul 13, 2018 13:07
--- NOTE | 2018-07-13 14:04 | PDOC3 ---
Discharge Summary Visit Information Date of Admission: Jul 09, 2018 Date of Discharge: Jul 13, 2018 Admitting Diagnosis: Hypertensive encephalopathy with underlying dementia fol Final Diagnosis Problems Medical Problems: (1) Anemia Status: Acute (2) CHF (congestive heart failure) Status: Acute (3) Hypertensive urgency Status: Acute (4) Sinus bradycardia Status: Acute Hypertensive encephalopathy with underlying dementia following TBI Recent falls Bradycardia Emphysema Anemia Failure to thrive History of CVA Dementia, likely vascular Brief Hospital Course Allergies Allergies Coded Allergies Type Severity Reaction Last Updated Verified No Known Drug Allergies 04/28/17 No Vital Signs Vital Signs Date Time Temp Pulse Resp B/P (MAP) Pulse Ox O2 Delivery O2 Flow Rate FiO2 07/13/18 11:20 99 Room Air 07/13/18 11:00 96.6 65 16 119/51 (73) 96.6 Brief Hospital Course Mr. Milligan is a 83 old [sex] who presented with [hypertensive encephalopathy. ] He was admitted and we got his pressures down we ordered aggressive physical therapy occupational therapy continued his home medications. The patient was seen and examined this morning he was at his baseline his heart tones were normal his lungs were clear abdomen was soft extremities no edema. He also had the following diagnosis : underlying dementia following TBI Recent falls Bradycardia Emphysema Anemia Failure to thrive History of CVA Dementia, likely vascular Overall the patient is doing well with plan to discharge to fdc at [facility] in [facility] Disposition skilled Activity as tolerated Diet regular Medications please see below Total time 34 minutes Discharge Information Scheduled Aspirin (Aspirin Ec) 81 Mg Tablet.dr, 81 MG PO DAILYWBKFT for 30 Days, #30 Prescribed by: KIMBERLEE MARQUIS MD on 04/30/17815 Last Taken: Unknown Dose on Unknown Date & Time Last Action: Continued on 07/09/18 143 by WILDA ASHRAF MD Atorvastatin Calcium (Atorvastatin Calcium) 20 Mg Tablet, 20 MG PO QHS for 30 Days, #30 Prescribed by: KIMBERLEE MARQUIS MD on 04/30/17815 Last Taken: Unknown Dose on Unknown Date & Time Last Action: Continued on 07/09/18 143 by WILDA ASHRAF MD Lisinopril (Lisinopril) 5 Mg Tablet, 5 MG PO DAILY for 30 Days, #30 Prescribed by: KIMBERLEE MARQUIS MD on 04/30/17815 Last Taken: Unknown Dose on Unknown Date & Time Last Action: Converted on 07/09/18 143 by WILDA ASHRAF MD Metoprolol Tartrate (Metoprolol Tartrate) 25 Mg Tablet, 12.5 MG PO BID for 30 Days, #30 Prescribed by: KIMBERLEE MARQUIS MD on 04/30/17815 Last Taken: Unknown Dose on Unknown Date & Time Last Action: Continued on 07/09/181430 by MD HÉCTOR FLAHERTY NIAL K III DO Jul 13, 2018 14:04
--- NOTE | 2018-07-13 15:06 | NUR ---
DWIGHT following pt. [facility] has received all documents they need from Selwyn. Orders faxed and on chart. Pt's choice and rights forms verbally consented by pt and copies on chart. Pt's friend Selwyn notified of plan and agreeable. Pt will transport via facility arranged w/c van between [id number]. Discussed with EDDIE.
--- NOTE | 2018-07-13 15:51 | NUR ---
Patient was discharged from the hospital with his belongings and patient discharge packet and educational information. Discharge information was discussed with the patient and he stated he no questions about the material, but could not recall what it said a minute later. Patient was escorted from the unit in a wheelchair by transporation.
== END 2018-07-13 15:53 | DRG 78 ==
LOC: ER 10:13 → 5 NORTH 10:47
PROVIDERS: ADMIT Internal Medicine; ATTEND Internal Medicine
DX: I67.4 Hypertensive encephalopathy (principal); Z68.1 Body mass index [BMI] 19.9 or less, adult; I16.0 Hypertensive urgency; I50.9 Heart failure, unspecified; I11.0 Hypertensive heart disease with heart failure; R62.7 Adult failure to thrive; I25.10 Atherosclerotic heart disease of native coronary artery without angina pectoris; D64.9 Anemia, unspecified; M19.90 Unspecified osteoarthritis, unspecified site; E11.42 Type 2 diabetes mellitus with diabetic polyneuropathy; J43.9 Emphysema, unspecified; Z66 Do not resuscitate; E78.5 Hyperlipidemia, unspecified; F01.50 Vascular dementia, unspecified severity, without behavioral disturbance, psychotic disturbance, mood disturbance, and anxiety; R29.6 Repeated falls; Z86.73 Personal history of transient ischemic attack (TIA), and cerebral infarction without residual deficits; I25.2 Old myocardial infarction; Z95.5 Presence of coronary angioplasty implant and graft; Z82.3 Family history of stroke; Z82.49 Family history of ischemic heart disease and other diseases of the circulatory system; Z79.899 Other long term (current) drug therapy
CPT/HCPCS: 36415; 70450; 71046; 80053; 80307; 81001; 82550; 83735; 83880; 84443; 84484; 85025; 93005; 94640; 94760; J1644; J2060; J7620; 99285-25